=== PATIENT | female | born 1950 | race Caucasian/White ===

== ENCOUNTER → 2016-07-09 | Outpatient (REF) | payer MEDICARE, MEDICAID ==
[~2016-07-09] MED LIST: /ADVA50050; /ALEN70TA; /TIOT18INH; CALC600T10; COLA50CA; COMBVENT; FERR325T; LEVA500T
[2016-07-09 11:37] LABS: ALBUMIN 4.1 GM/DL (3.2-5.2); ALBUMIN/GLOBULIN RATIO 1.46 (1.00-1.93); BILIRUBIN,TOTAL 0.5 MG/DL (0.2-1.0); CALCIUM LEVEL 9.4 MG/DL (8.8-10.2); GLOMERULAR FILTRATION RATE 59.6 (>45); POTASSIUM SERUM 4.4 MEQ/L (3.5-5.1); TOTAL PROTEIN 6.9 GM/DL (6.4-8.2)
== END ==
LOC: M SFHCPLAZ 10:17
PROVIDERS: ATTEND Nurse Practitioner Family
DX: E78.00 Pure hypercholesterolemia, unspecified (principal); E55.9 Vitamin D deficiency, unspecified

== ENCOUNTER → 2017-01-02 | Outpatient (REF) | payer MEDICARE, MEDICAID ==
[2017-01-02 12:13] LABS: ALBUMIN 4.1 GM/DL (3.2-5.2); ALBUMIN/GLOBULIN RATIO 1.52 (1.00-1.93); ALKALINE PHOSPHATASE 83 U/L (45-117); ALT/SGPT 20 U/L (12-78); ANION GAP 7 MEQ/L (8-16); AST/SGOT 16 U/L (7-37); BILIRUBIN,TOTAL 0.5 MG/DL (0.2-1.0); BLOOD UREA NITROGEN 14 MG/DL (7-18); CALCIUM LEVEL 9.4 MG/DL (8.8-10.2); CARBON DIOXIDE LEVEL 30 MEQ/L (21-32); CHLORIDE LEVEL 106 MEQ/L (98-107); CHOLESTEROL LEVEL 229 MG/DL (<200); CREATININE FOR GFR 0.93 MG/DL (0.55-1.02); GLOMERULAR FILTRATION RATE > 60.0 (>45); GLUCOSE, FASTING 85 MG/DL (80-110); POTASSIUM SERUM 4.3 MEQ/L (3.5-5.1); SODIUM LEVEL 143 MEQ/L (136-145); TOTAL PROTEIN 6.8 GM/DL (6.4-8.2); TRIGLYCERIDES LEVEL 97 MG/DL (<150)
== END ==
LOC: M SFHCPLAZ 09:57
PROVIDERS: ATTEND Nurse Practitioner Family
DX: E78.00 Pure hypercholesterolemia, unspecified (principal); E55.9 Vitamin D deficiency, unspecified

== ENCOUNTER → 2017-07-03 | Outpatient (REF) | payer MEDICARE, MEDICAID ==
[2017-07-03 12:06] LABS: ALBUMIN 3.9 GM/DL (3.2-5.2); ALKALINE PHOSPHATASE 82 U/L (45-117); ALT/SGPT 15 U/L (12-78); ANION GAP 6 MEQ/L (8-16); AST/SGOT 15 U/L (7-37); BILIRUBIN,TOTAL 0.4 MG/DL (0.2-1.0); BLOOD UREA NITROGEN 23 MG/DL (7-18); CALCIUM LEVEL 9.1 MG/DL (8.8-10.2); CARBON DIOXIDE LEVEL 30 MEQ/L (21-32); CHLORIDE LEVEL 106 MEQ/L (98-107); CREATININE FOR GFR 1.08 MG/DL (0.55-1.30); GLOMERULAR FILTRATION RATE 54.4 (>45); GLUCOSE, FASTING 94 MG/DL (70-100); POTASSIUM SERUM 4.2 MEQ/L (3.5-5.1); SODIUM LEVEL 142 MEQ/L (136-145); TOTAL PROTEIN 6.9 GM/DL (6.4-8.2)
[2017-07-03 12:12] LABS: TOTAL 25(OH) VITAMIN D 25.3 NG/ML (30.0-100.0)
== END ==
LOC: M SFHCPLAZ 09:16
DX: M81.0 Age-related osteoporosis without current pathological fracture (principal); E55.9 Vitamin D deficiency, unspecified
CPT/HCPCS: 80053

== ENCOUNTER → 2017-10-13 | Outpatient (CLI) | payer MEDICARE, MEDICAID | LOC: M SMT 13:39 | DX: J44.9 Chronic obstructive pulmonary disease, unspecified (principal) | CPT/HCPCS: 71046 ==

== ENCOUNTER → 2018-01-05 | Outpatient (REF) | payer MEDICARE, MEDICAID ==
[2018-01-05 12:50] LABS: ALBUMIN/GLOBULIN RATIO 1.33 (1.00-1.93); ALKALINE PHOSPHATASE 89 U/L (45-117); ALT/SGPT 22 U/L (12-78); ANION GAP 6 MEQ/L (8-16); AST/SGOT 18 U/L (7-37); BILIRUBIN,TOTAL 0.4 MG/DL (0.2-1.0); BLOOD UREA NITROGEN 19 MG/DL (7-18); CALCIUM LEVEL 9.2 MG/DL (8.8-10.2); CARBON DIOXIDE LEVEL 31 MEQ/L (21-32); CHLORIDE LEVEL 105 MEQ/L (98-107); CHOLESTEROL LEVEL 243 MG/DL (<200); CHOLESTEROL RISK RATIO 3.983 (<5); CREATININE FOR GFR 1.04 MG/DL (0.55-1.30); GLOMERULAR FILTRATION RATE 56.6 (>45); GLUCOSE, FASTING 83 MG/DL (70-100); HDL CHOLESTEROL 61 MG/DL (>40); LDL CHOLESTEROL 150 MG/DL (<100); NON-HDL-C 182 MG/DL; POTASSIUM SERUM 4.5 MEQ/L (3.5-5.1); SODIUM LEVEL 142 MEQ/L (136-145); TRIGLYCERIDES LEVEL 160 MG/DL (<150)
[2018-01-05 12:57] LABS: TOTAL 25(OH) VITAMIN D 23.9 NG/ML (30.0-100.0)
== END ==
LOC: M SFHCPLAZ 08:32
DX: E78.00 Pure hypercholesterolemia, unspecified (principal); E55.9 Vitamin D deficiency, unspecified; Z79.899 Other long term (current) drug therapy
CPT/HCPCS: 80053

== ENCOUNTER → 2018-05-14 | Outpatient (CLI) | payer MEDICARE, MEDICAID ==
[~2018-05-14] MED LIST changes: -/ADVA50050; -/TIOT18INH; +ADVA1AER2; +SPIR1CAP
--- NOTE | 2018-05-14 15:49 | REPMRS ---
Patient History The patient states she had a clinical breast exam in 04/2018. Family history of breast cancer in maternal half sister. Benign excisional biopsy of the right breast, 2000. Took unspecified hormones for 6 months. 3D TOMOSYNTHESIS WAS PERFORMED. Digital Woman Screen Mammo: May 14, 2018 - Exam #: [id number] Bilateral CC and MLO view(s) were taken. Technologist: Imelda Hernandez Technologist Prior study comparison: December 15, 2016, digital woman screen mammo performed at [facility] [place] [facility]. October 09, 2015, digital woman screen mammo performed at [facility] [place] [facility]. FINDINGS: There are scattered fibroglandular densities. There has been no change in the appearance of the mammogram from the prior studies. There is a mild amount of residual fibroglandular tissue which is fairly symmetric. There is no interval development of dominant mass, architectural distortion, or clustered microcalcification suggestive of malignancy. Assessment: BI-RADS/ACR category 1 mammogram. Negative Mammogram. Recommendation Routine screening mammogram in 1 year (for women over age 40). This mammogram was interpreted with the aid of an FDA-approved computer-aided dectection system. Electronically Signed By: Teto Haq MD 05/14/18 [id number]
== END ==
LOC: M WHC 15:05
PROVIDERS: ATTEND Nurse Practitioner Family
DX: Z12.31 Encounter for screening mammogram for malignant neoplasm of breast (principal); Z86.018 Personal history of other benign neoplasm; Z92.29 Personal history of other drug therapy; Z23 Encounter for immunization; Z80.3 Family history of malignant neoplasm of breast
CPT/HCPCS: 77063; 77067; 90670; G0009; G0463

== ENCOUNTER 2018-09-27 17:00 | Emergency (ER) | payer OTHER, MEDICARE, MEDICAID ==
[~2018-09-27] VITALS: Ht 144.8 cm; Wt 46.4 kg
[2018-09-27] MEDS ORDERED: NORCO, ANEXSIA 5/325MG TABLET (HYDROcodone/ACETAMINOPHEN) PO ONE (17:45)
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
[2018-09-27] MEDS ORDERED: SOMA250T PO (19:23)
[2018-09-27 19:25] VITALS: BP 182/102
--- NOTE | 2018-09-27 21:45 | ED PDOC ---
Post-Departure Follow-Up heidi cervantes faxed fomral report of ct chest for fu alixg Dariela Osuna MD Sep 27, 2018 21:45
== END 2018-09-27 20:09 | disposition home or self-care (01) ==
LOC: EDBD 17:00 → M ED 17:00
DX: S13.4XXA Sprain of ligaments of cervical spine, initial encounter (principal); S39.012A Strain of muscle, fascia and tendon of lower back, initial encounter; T14.8XXA Other injury of unspecified body region, initial encounter; R91.1 Solitary pulmonary nodule; V43.52XA Car driver injured in collision with other type car in traffic accident, initial encounter; Y92.9 Unspecified place or not applicable; Y93.9 Activity, unspecified; Y99.9 Unspecified external cause status; M85.88 Other specified disorders of bone density and structure, other site; J92.9 Pleural plaque without asbestos; J43.9 Emphysema, unspecified; Z79.899 Other long term (current) drug therapy; Z91.012 Allergy to eggs; Z91.018 Allergy to other foods; Z88.0 Allergy status to penicillin; Z88.2 Allergy status to sulfonamides; Z88.8 Allergy status to other drugs, medicaments and biological substances

== ENCOUNTER 2018-10-03 00:35 | Emergency (ER) | payer MEDICARE, MEDICAID ==
[~2018-10-03] VITALS: Ht 144.8 cm; Wt 46.4 kg
[~2018-10-03 00:35] MED LIST changes: +SOMA250T PO
[2018-10-03 01:05] LABS: BASO # 0.1 10^3/uL (0.0-0.2); BASO % 1.1 % (0.0-1.0); EOS # 0.2 10^3/uL (0.0-0.50); EOS % 1.8 % (0.0-3.0); LYMPH # 2.2 10^3/uL (1.5-4.5); LYMPH % 21.6 % (24.0-44.0); MEAN CORPUSCULAR HEMOGLOBIN 30.3 pg (27.0-33.0); MEAN CORPUSCULAR HGB CONC 31.9 g/dl (32.0-36.5); MEAN CORPUSCULAR VOLUME 94.9 fl (80.0-96.0); MONO # 0.7 10^3/uL (0.0-0.8); MONO % 6.6 % (0.0-5.0); NEUTROPHILS % 68.1 % (36.0-66.0); PLATELET COUNT, AUTOMATED 259 10^3/uL (150-450); RED BLOOD COUNT 4.95 10^6/uL (4.00-5.40); WHITE BLOOD COUNT 10.2 10^3/uL (4.0-10.0)
[2018-10-03 01:29] LABS: BLOOD UREA NITROGEN 21 MG/DL (7-18); CALCIUM LEVEL 10.3 MG/DL (8.8-10.2); CARBON DIOXIDE LEVEL 29 MEQ/L (21-32); CHLORIDE LEVEL 101 MEQ/L (98-107); CPK CREATINE PHOSPHOKINASE 64 U/L (26-192); CREATININE FOR GFR 1.41 MG/DL (0.55-1.30); GLOMERULAR FILTRATION RATE 39.7 (>45); GLUCOSE, FASTING 137 MG/DL (70-100); MB/CK RELATIVE INDEX 1.56 (< OR =4); POTASSIUM SERUM 4.7 MEQ/L (3.5-5.1); SODIUM LEVEL 137 MEQ/L (136-145); TROPONIN I < 0.02 NG/ML (< 0.10)
[2018-10-03 01:32] VITALS: BP 147/84
[2018-10-03] MEDS ORDERED: LORazepam 1 MG TAB PO STA (02:44)
[2018-10-03] MEDS ORDERED: dexameTHASONE 20 MG/5 ML VIAL (J1100) IV ONE (02:45)
--- NOTE | 2018-10-03 09:52 | REP ---
HISTORY: Chest pain. COMPARISON: Multiple, the latest 10/13/2017. The technique utilized in obtaining the radiograph has magnified the cardiac silhouette and accentuated the interstitial markings. There is mild interstitial fibrotic change with basilar predominance, status quo. There are no acute patchy parenchymal opacities or pleural effusions. The heart is not enlarged. The osseous structures are stable and intact. IMPRESSION: No acute cardiopulmonary disease and no significant change from the prior exam. Electronically Signed by Jhonny Whaley DO 10/03/2018 10:06 A
--- NOTE | 2018-10-03 21:34 | ECGEPIP ---
[facility] - ED Test Date: 2018-10-03 Pat Name: EVENA LOZANO Department: Room: - Gender: Female Account General Manager: : 1950 Requested By: RACHELLE ALAMO Order Number: [id number] Reading MD: Charis García Measurements Intervals [place] Rate: 109 P: 69 KS: 100 QRS: -36 QRSD: 89 T: 69 QT: 314 QTc: 423 Interpretive Statements SINUS TACHYCARDIA WITH SHORT [place] INTERVAL baseline artifact may affect interpretation MARKED LEFT AXIS DEVIATION NONSPECIFIC ST & T-WAVE ABNORMALITY NO PRIOR Electronically Signed on 10-03-2018 21:34:14 EDT by Charis García
== END 2018-10-03 03:04 | disposition home or self-care (01) ==
LOC: M ED 00:35
DX: J44.9 Chronic obstructive pulmonary disease, unspecified (principal); R00.0 Tachycardia, unspecified; F41.1 Generalized anxiety disorder; Z79.51 Long term (current) use of inhaled steroids; Z79.899 Other long term (current) drug therapy; Z87.891 Personal history of nicotine dependence; Z88.0 Allergy status to penicillin; Z88.2 Allergy status to sulfonamides; Z88.6 Allergy status to analgesic agent; Z88.8 Allergy status to other drugs, medicaments and biological substances; Z91.012 Allergy to eggs; Z91.018 Allergy to other foods
CPT/HCPCS: 71045; 80048; 82550; 82553; 83605; 84484; 85025; 93005; 96374; 99284; J1100

== ENCOUNTER 2018-10-21 13:45 | Outpatient (RCR) | payer OTHER, MEDICARE, MEDICAID | END 2018-10-23 | LOC: M PT 13:45 | PROVIDERS: ATTEND Nurse Practitioner Family | DX: S39.012D Strain of muscle, fascia and tendon of lower back, subsequent encounter (principal); S16.1XXD Strain of muscle, fascia and tendon at neck level, subsequent encounter ==

== ENCOUNTER 2018-11-10 13:00 | Outpatient (RCR) | payer OTHER, MEDICARE, MEDICAID | END 2018-11-22 | LOC: M PT 13:00 | PROVIDERS: ATTEND Nurse Practitioner Family | DX: Z51.89 Encounter for other specified aftercare (principal); S39.012D Strain of muscle, fascia and tendon of lower back, subsequent encounter; S16.1XXD Strain of muscle, fascia and tendon at neck level, subsequent encounter ==

== ENCOUNTER → 2018-11-15 | Outpatient (REF) | payer MEDICARE, MEDICAID ==
[2018-11-15 13:27] LABS: ALT/SGPT 14 U/L (12-78); BILIRUBIN,TOTAL 0.3 MG/DL (0.2-1.0); BLOOD UREA NITROGEN 15 MG/DL (7-18); CALCIUM LEVEL 9.2 MG/DL (8.8-10.2); CARBON DIOXIDE LEVEL 30 MEQ/L (21-32); CHLORIDE LEVEL 104 MEQ/L (98-107); CHOLESTEROL LEVEL 215 MG/DL (<200); CHOLESTEROL RISK RATIO 3.412 (<5); CREATININE FOR GFR 0.95 MG/DL (0.55-1.30); GLOMERULAR FILTRATION RATE > 60.0 (>45); GLUCOSE, FASTING 86 MG/DL (70-100); HDL CHOLESTEROL 63 MG/DL (>40); LDL CHOLESTEROL 131 MG/DL (<100); NON-HDL-C 152 MG/DL; POTASSIUM SERUM 4.5 MEQ/L (3.5-5.1); SODIUM LEVEL 142 MEQ/L (136-145); TOTAL 25(OH) VITAMIN D 27.7 NG/ML (30.0-100.0); TOTAL PROTEIN 7.2 GM/DL (6.4-8.2); TRIGLYCERIDES LEVEL 103 MG/DL (<150)
== END ==
LOC: M SFHCPLAZ 10:22
PROVIDERS: ATTEND Nurse Practitioner Family
DX: E78.00 Pure hypercholesterolemia, unspecified (principal); E55.9 Vitamin D deficiency, unspecified; Z79.899 Other long term (current) drug therapy

== ENCOUNTER → 2019-09-22 | Outpatient (CLI) | payer MEDICARE, MEDICAID ==
--- NOTE | 2019-10-16 11:02 | REPMRS ---
Patient History The patient states she had a clinical breast exam in September 2019.Family history of breast cancer in maternal half sister. Benign excisional biopsy of the right breast, 2000. Took unspecified hormones for 6 months. Digital Woman Screen Mammo: September 22, 2019 - Exam #: [id number] Bilateral CC and MLO view(s) were taken. Technologist: Soila Ceja, Technologist Prior study comparison: May 14, 2018, bilateral digital woman screen mammo performed at [facility]. December 15, 2016, digital woman screen mammo performed at [facility]. FINDINGS: There are scattered fibroglandular densities. There has been no change in the appearance of the mammogram from the prior studies. There is a mild amount of scattered fibroglandular density which is fairly symmetric. There is no interval development of dominant mass, architectural distortion, or grouped microcalcification suggestive of malignancy. 3-D tomosynthesis shows no additional findings. Report was delayed due to a protracted network disruption experienced by this facility. Assessment: BI-RADS/ACR category 1 mammogram. Negative Mammogram. Recommendation Routine screening mammogram of both breasts in 1 year (for women over age 40). This patient's Lifetime Breast Cancer Risk is estimated at 6.1 %. This mammogram was interpreted with the aid of an FDA-approved computer-aided dectection system. Electronically Signed By: Eben Driver MD 10/16/19 [id number]
== END ==
LOC: M WHC 13:18
PROVIDERS: ATTEND Nurse Practitioner Family
DX: Z12.31 Encounter for screening mammogram for malignant neoplasm of breast (principal); Z80.3 Family history of malignant neoplasm of breast; Z86.018 Personal history of other benign neoplasm; Z92.29 Personal history of other drug therapy

== ENCOUNTER → 2019-11-28 | Outpatient (REF) | payer MEDICARE, MEDICAID ==
[2019-11-28 14:20] LABS: ALT/SGPT 15 U/L (12-78); BILIRUBIN,TOTAL 0.3 MG/DL (0.2-1.0); BLOOD UREA NITROGEN 18 MG/DL (7-18); CALCIUM LEVEL 9.5 MG/DL (8.8-10.2); CARBON DIOXIDE LEVEL 29 MEQ/L (21-32); CHLORIDE LEVEL 106 MEQ/L (98-107); CHOLESTEROL LEVEL 271 MG/DL (<200); CHOLESTEROL RISK RATIO 4.593 (<5); CREATININE FOR GFR 0.91 MG/DL (0.55-1.30); GLOMERULAR FILTRATION RATE > 60.0 (>45); GLUCOSE, FASTING 85 MG/DL (70-100); HDL CHOLESTEROL 59 MG/DL (>40); LDL CHOLESTEROL 179 MG/DL (<100); NON-HDL-C 212 MG/DL; SODIUM LEVEL 140 MEQ/L (136-145); TOTAL 25(OH) VITAMIN D 26.5 NG/ML (30.0-100.0); TRIGLYCERIDES LEVEL 163 MG/DL (<150)
== END ==
LOC: M PLALAB 10:46
PROVIDERS: ATTEND Nurse Practitioner Family
DX: E78.00 Pure hypercholesterolemia, unspecified (principal); E55.9 Vitamin D deficiency, unspecified

== ENCOUNTER → 2020-05-30 | Outpatient (REF) | payer MEDICARE, MEDICAID ==
[2020-05-30 16:28] LABS: ALBUMIN 4.2 GM/DL (3.2-5.2); ALT/SGPT 18 U/L (12-78); BILIRUBIN,TOTAL 0.4 MG/DL (0.2-1.0); BLOOD UREA NITROGEN 18 MG/DL (7-18); CALCIUM LEVEL 9.4 MG/DL (8.8-10.2); CARBON DIOXIDE LEVEL 32 MEQ/L (21-32); CHLORIDE LEVEL 104 MEQ/L (98-107); CHOLESTEROL LEVEL 279 MG/DL (<200); CHOLESTEROL RISK RATIO 4.102 (<5); CREATININE FOR GFR 0.92 MG/DL (0.55-1.30); GLOMERULAR FILTRATION RATE > 60.0 (>45); GLUCOSE, FASTING 86 MG/DL (70-100); HDL CHOLESTEROL 68 MG/DL (>40); LDL CHOLESTEROL 172 MG/DL (<100); NON-HDL-C 211 MG/DL; POTASSIUM SERUM 4.5 MEQ/L (3.5-5.1); SODIUM LEVEL 139 MEQ/L (136-145); TOTAL 25(OH) VITAMIN D 75.7 NG/ML (30.0-100.0); TOTAL PROTEIN 7.3 GM/DL (6.4-8.2); TRIGLYCERIDES LEVEL 196 MG/DL (<150)
== END ==
LOC: M PLALAB 13:58
PROVIDERS: ATTEND Nurse Practitioner Family
DX: E78.00 Pure hypercholesterolemia, unspecified (principal); E55.9 Vitamin D deficiency, unspecified

== ENCOUNTER → 2020-10-01 | Outpatient (CLI) | payer MEDICARE ==
[~2020-10-01] MED LIST changes: +ACET500P3 PO; +ADV250INH INH; +ALBU8.5H INH; +CALC-356 PO; +ERGO500029 PO; +FLUTISP; +INCR1INH INH; +TRIA1CR80 TOP
== END ==
LOC: M WHC 11:23
PROVIDERS: ATTEND Nurse Practitioner Family
DX: Z12.31 Encounter for screening mammogram for malignant neoplasm of breast (principal)

== ENCOUNTER → 2021-01-19 | Outpatient (CLI) | payer MEDICARE, MEDICAID | LOC: M LABSMTC 11:10 | PROVIDERS: ATTEND Anesthesiology | DX: Z01.818 Encounter for other preprocedural examination (principal); Z11.52 Encounter for screening for COVID-19 ==

== ENCOUNTER 2021-01-22 09:34 | Day surgery (SDC) | payer MEDICARE, MEDICAID ==
[~2021-01-22] VITALS: Ht 147.3 cm; Wt 44.2 kg
[~2021-01-22 09:34] MED LIST changes: +LIDOCAINE 2% 100MG/5ML SDV (FOR ANES.) As Ordered ONE; +NS 1,000 ML IV ONE; +propofoL 200 MG/20 ML VIAL As Ordered ONE
[2021-01-22 11:49] VITALS: BP 138/84
== END 2021-01-22 12:10 | disposition home or self-care (01) ==
LOC: M OPP 09:34
PROVIDERS: ATTEND Internal Medicine Gastroenterology
DX: Z12.11 Encounter for screening for malignant neoplasm of colon (principal); Z86.010 Personal history of colon polyps; Z79.899 Other long term (current) drug therapy; Z88.0 Allergy status to penicillin; Z88.2 Allergy status to sulfonamides; Z88.8 Allergy status to other drugs, medicaments and biological substances; Z91.011 Allergy to milk products; Z91.012 Allergy to eggs; Z91.018 Allergy to other foods; Z91.040 Latex allergy status; Z87.891 Personal history of nicotine dependence

== ENCOUNTER → 2021-05-13 | Outpatient (CLI) | payer MEDICARE, MEDICAID ==
[~2021-05-13] MED LIST changes: -LIDOCAINE 2% 100MG/5ML SDV (FOR ANES.) As Ordered ONE; -NS 1,000 ML IV ONE; -propofoL 200 MG/20 ML VIAL As Ordered ONE
[2021-05-13 17:07] LABS: BASO # 0.1 10^3/uL (0.0-0.2); BASO % 1.2 % (0.0-1.0); EOS # 0.2 10^3/uL (0.0-0.5); EOS % 2.4 % (0.0-3.0); HEMATOCRIT 44.3 % (36.0-47.0); LYMPH # 1.7 10^3/uL (1.5-5.0); LYMPH % 25.2 % (24.0-44.0); MEAN CORPUSCULAR HEMOGLOBIN 29.7 pg (27.0-33.0); MEAN CORPUSCULAR HGB CONC 31.6 g/dl (32.0-36.5); MEAN CORPUSCULAR VOLUME 93.9 fl (80.0-96.0); MONO # 0.6 10^3/uL (0.0-0.8); MONO % 9.2 % (2.0-8.0); NEUTROPHILS # 4.1 10^3/uL (1.5-8.5); NEUTROPHILS % 61.5 % (36.0-66.0); PLATELET COUNT, AUTOMATED 278 10^3/uL (150-450); RED BLOOD COUNT 4.72 10^6/uL (4.00-5.40); WHITE BLOOD COUNT 6.6 10^3/uL (4.0-10.0)
[2021-05-13 17:32] LABS: CREATININE FOR GFR 0.99 MG/DL (0.55-1.30)
[2021-05-13 17:33] LABS: ALBUMIN 4.3 GM/DL (3.2-5.2); BILIRUBIN,TOTAL 0.3 MG/DL (0.2-1.0); CALCIUM LEVEL 9.5 MG/DL (8.8-10.2); CHOLESTEROL RISK RATIO 3.453 (<5); GLOMERULAR FILTRATION RATE 59.4 (>45); POTASSIUM SERUM 4.3 MEQ/L (3.5-5.1); TOTAL PROTEIN 7.4 GM/DL (6.4-8.2)
[2021-05-13 17:35] LABS: TOTAL 25(OH) VITAMIN D 21.1 NG/ML (30.0-100.0)
== END ==
LOC: M PLALAB 14:49
PROVIDERS: ATTEND Nurse Practitioner Family
DX: J43.9 Emphysema, unspecified (principal); E78.00 Pure hypercholesterolemia, unspecified; E55.9 Vitamin D deficiency, unspecified

== ENCOUNTER 2021-07-23 17:41 | Inpatient (IN) | payer MEDICARE, MEDICAID ==
[~2021-07-23] VITALS: Ht 147.3 cm; Wt 50.6 kg
[2021-07-23 18:25] LABS: BASO # 0.1 10^3/uL (0.0-0.2); BASO % 0.6 % (0.0-1.0); EOS # 0.1 10^3/uL (0.0-0.5); EOS % 0.6 % (0.0-3.0); HEMOGLOBIN 13.8 g/dl (12.0-15.5); LYMPH # 1.4 10^3/uL (1.5-5.0); LYMPH % 11.3 % (24.0-44.0); MEAN CORPUSCULAR HEMOGLOBIN 30.2 pg (27.0-33.0); MEAN CORPUSCULAR HGB CONC 32.1 g/dl (32.0-36.5); MEAN CORPUSCULAR VOLUME 94.1 fl (80.0-96.0); MONO # 1.2 10^3/uL (0.0-0.8); MONO % 9.9 % (2.0-8.0); NEUTROPHILS # 9.6 10^3/uL (1.5-8.5); NEUTROPHILS % 77.1 % (36.0-66.0); PLATELET COUNT, AUTOMATED 289 10^3/uL (150-450); RED BLOOD COUNT 4.57 10^6/uL (4.00-5.40); WHITE BLOOD COUNT 12.5 10^3/uL (4.0-10.0)
[2021-07-23] MEDS ORDERED: dexameTHASONE 4 MG/ML 1ML VIAL (J1100 PER 1MG) IV ONE (18:30)
[2021-07-23 18:54] LABS: CK-MB VALUE MASS < 1.0 NG/ML (<3.6); CPK CREATINE PHOSPHOKINASE 79 U/L (26-192); MB/CK RELATIVE INDEX 1.27 (< OR =4)
[2021-07-23 18:59] LABS: ALBUMIN 3.8 GM/DL (3.2-5.2); BILIRUBIN,DIRECT 0.2 MG/DL (0.0-0.2); BILIRUBIN,TOTAL 0.3 MG/DL (0.2-1.0); CALCIUM LEVEL 9.8 MG/DL (8.8-10.2); CREATININE FOR GFR 1.01 MG/DL (0.55-1.30); FREE T4 0.9 NG/DL (0.76-1.46); THYROID STIMULATING HORMONE 2.22 uIU/ML (0.358-3.740); TOTAL PROTEIN 7.7 GM/DL (6.4-8.2)
[2021-07-23] MEDS: COMBIVENT RESPIMAT 100-20MCG INHALER 4GM INH SCH ×3 (19:10→20:36)
[2021-07-23] MEDS ORDERED: ISOVUE-370 76% 100ML VIAL As Ordered ONE (19:41)
[2021-07-23 19:54] LABS: CK-MB VALUE MASS < 1.0 NG/ML (<3.6); CPK CREATINE PHOSPHOKINASE 68 U/L (26-192); MB/CK RELATIVE INDEX 1.47 (< OR =4)
[2021-07-23] MEDS ORDERED: LevoFLOXacin IV 750 MG in IV 1 EA IV ONE (22:35)
[2021-07-23] MEDS ORDERED: COMBIVENT RESPIMAT 100-20MCG INHALER 4GM INH ONE (22:55)
[2021-07-23] MEDS ORDERED: ALBUTEROL SULFATE 2.5 MG/0.5 ML INH NEB SOLN INH PRN (23:20)
[2021-07-23] MEDS ORDERED: ALBUTEROL 90 MCG/ACT 8GM HFA INHALER INH PRN (23:20)
[2021-07-23] MEDS ORDERED: IPRATROPIUM 0.5MG/ALBUTEROL 2.5MG INH SOL UD 3ML (DUONEB) INH PRN (23:20)
[2021-07-24] VITALS (8 sets, daily range): BP systolic 150–180; BP diastolic 60–77; O2SAT 94–95
[2021-07-24] MEDS ORDERED: ACET-897 PO (02:07)
[2021-07-24] MEDS ORDERED: AUGM0.05 EXT (02:07)
[2021-07-24] MEDS ORDERED: LEVOTAB10 PO (02:07)
[2021-07-24] MEDS ORDERED: CALC600T27 PO (02:07)
[2021-07-24] MEDS ORDERED: ALBU8.5H INH (02:07)
[2021-07-24] MEDS ORDERED: HOME MED LIST COMPLETE! XX SCH (02:10)
[2021-07-24 05:44] LABS: BASO % 0.3 % (0.0-1.0); HEMATOCRIT 38.6 % (36.0-47.0); HEMOGLOBIN 12.6 g/dl (12.0-15.5); LYMPH # 0.7 10^3/uL (1.5-5.0); LYMPH % 6.6 % (24.0-44.0); MEAN CORPUSCULAR HEMOGLOBIN 30.7 pg (27.0-33.0); MEAN CORPUSCULAR HGB CONC 32.6 g/dl (32.0-36.5); MEAN CORPUSCULAR VOLUME 94.1 fl (80.0-96.0); MONO # 0.4 10^3/uL (0.0-0.8); NEUTROPHILS % 88.4 % (36.0-66.0); PLATELET COUNT, AUTOMATED 275 10^3/uL (150-450); WHITE BLOOD COUNT 10.2 10^3/uL (4.0-10.0)
[2021-07-24 06:16] LABS: ALBUMIN 3.5 GM/DL (3.2-5.2); ALT/SGPT 26 U/L (12-78); BILIRUBIN,TOTAL 0.4 MG/DL (0.2-1.0); BLOOD UREA NITROGEN 11 MG/DL (7-18); CALCIUM LEVEL 9.1 MG/DL (8.8-10.2); CARBON DIOXIDE LEVEL 26 MEQ/L (21-32); CHLORIDE LEVEL 105 MEQ/L (98-107); CREATININE FOR GFR 0.94 MG/DL (0.55-1.30); GLOMERULAR FILTRATION RATE > 60.0 (>45); GLUCOSE, FASTING 160 MG/DL (70-100); POTASSIUM SERUM 4.6 MEQ/L (3.5-5.1); SODIUM LEVEL 139 MEQ/L (136-145); TOTAL PROTEIN 7.1 GM/DL (6.4-8.2)
[2021-07-24] MEDS: ADVAIR HFA 115/21MCG INHALER INH SCH (08:11)
[2021-07-24] MEDS: ENOXAPARIN 40MG/0.4ML SYRINGE (J1650 PER 10MG) SC SCH (09:29)
[2021-07-24] MEDS: CALCIUM/VITAMIN D 500 MG TAB PO SCH ×2 (09:29→20:52)
[2021-07-24] MEDS: ACETAMINOPHEN 500 MG TAB PO PRN (20:58)
[2021-07-25] VITALS (22 sets, daily range): BP systolic 124–170; BP diastolic 67–80; O2SAT 85–99
[2021-07-25 05:10] LABS: BASO # 0.1 10^3/uL (0.0-0.2); BASO % 0.6 % (0.0-1.0); EOS # 0.1 10^3/uL (0.0-0.5); HEMOGLOBIN 12.7 g/dl (12.0-15.5); LYMPH # 2.4 10^3/uL (1.5-5.0); LYMPH % 17.7 % (24.0-44.0); MEAN CORPUSCULAR HEMOGLOBIN 30.7 pg (27.0-33.0); MEAN CORPUSCULAR HGB CONC 32.6 g/dl (32.0-36.5); MEAN CORPUSCULAR VOLUME 94.2 fl (80.0-96.0); MONO # 1.3 10^3/uL (0.0-0.8); MONO % 9.3 % (2.0-8.0); NEUTROPHILS # 9.4 10^3/uL (1.5-8.5); NEUTROPHILS % 70.7 % (36.0-66.0); PLATELET COUNT, AUTOMATED 280 10^3/uL (150-450); RED BLOOD COUNT 4.14 10^6/uL (4.00-5.40); WHITE BLOOD COUNT 13.4 10^3/uL (4.0-10.0)
[2021-07-25 05:40] LABS: ALBUMIN 3.1 GM/DL (3.2-5.2); ALT/SGPT 18 U/L (12-78); BILIRUBIN,TOTAL 0.3 MG/DL (0.2-1.0); BLOOD UREA NITROGEN 15 MG/DL (7-18); CALCIUM LEVEL 9.3 MG/DL (8.8-10.2); CARBON DIOXIDE LEVEL 29 MEQ/L (21-32); CHLORIDE LEVEL 107 MEQ/L (98-107); GLOMERULAR FILTRATION RATE > 60.0 (>45); GLUCOSE, FASTING 103 MG/DL (70-100); SODIUM LEVEL 140 MEQ/L (136-145); TOTAL PROTEIN 7.2 GM/DL (6.4-8.2)
[2021-07-25] MEDS: ACETAMINOPHEN 500 MG TAB PO PRN ×3 (06:35→23:13)
[2021-07-25] MEDS: ADVAIR HFA 115/21MCG INHALER INH SCH (07:53)
[2021-07-25] MEDS: CALCIUM/VITAMIN D 500 MG TAB PO SCH ×2 (08:34→21:19)
[2021-07-25] MEDS: ENOXAPARIN 40MG/0.4ML SYRINGE (J1650 PER 10MG) SC SCH (08:35)
[2021-07-25] MEDS: LIDOCAINE 5% (LIDODERM) PATCH TD SCH (15:31)
[2021-07-25 16:08] LABS: MYCOPLASMA PNEUMONIAE IgG 285 U/mL (0-99); MYCOPLASMA PNEUMONIAE IgM <770 U/mL (0-769)
[2021-07-25] MEDS: **NOTE PATIENT COMMENT** MISC XX SCH (21:00)
[2021-07-25] MEDS ORDERED: RAMELTEON 8 MG TAB (ROZEREM) PO PRN (23:55)
[2021-07-26] VITALS (9 sets, daily range): BP systolic 126–147; BP diastolic 68–83; O2SAT 95–96
[2021-07-26] MEDS ORDERED: LevoFLOXacin IV 750 MG in IV 1 EA IV SCH ×2
[2021-07-26] MEDS ORDERED: guaiFENesin SYRUP 200MG 10ML UDC PO PRN (04:35)
[2021-07-26 07:38] LABS: BASO # 0.1 10^3/uL (0.0-0.2); BASO % 0.9 % (0.0-1.0); EOS # 0.3 10^3/uL (0.0-0.5); HEMATOCRIT 38.5 % (36.0-47.0); HEMOGLOBIN 12.2 g/dl (12.0-15.5); LYMPH # 1.8 10^3/uL (1.5-5.0); LYMPH % 17.6 % (24.0-44.0); MEAN CORPUSCULAR HGB CONC 31.7 g/dl (32.0-36.5); MEAN CORPUSCULAR VOLUME 94.6 fl (80.0-96.0); MONO % 10.4 % (2.0-8.0); NEUTROPHILS # 6.7 10^3/uL (1.5-8.5); NEUTROPHILS % 66.5 % (36.0-66.0); PLATELET COUNT, AUTOMATED 268 10^3/uL (150-450); RED BLOOD COUNT 4.07 10^6/uL (4.00-5.40)
[2021-07-26 07:46] LABS: ALT/SGPT 23 U/L (12-78); BILIRUBIN,TOTAL 0.3 MG/DL (0.2-1.0); BLOOD UREA NITROGEN 16 MG/DL (7-18); CALCIUM LEVEL 9.5 MG/DL (8.8-10.2); CARBON DIOXIDE LEVEL 29 MEQ/L (21-32); CHLORIDE LEVEL 106 MEQ/L (98-107); CREATININE FOR GFR 0.83 MG/DL (0.55-1.30); GLOMERULAR FILTRATION RATE > 60.0 (>45); GLUCOSE, FASTING 97 MG/DL (70-100); POTASSIUM SERUM 4.3 MEQ/L (3.5-5.1); SODIUM LEVEL 142 MEQ/L (136-145); TOTAL PROTEIN 6.4 GM/DL (6.4-8.2)
[2021-07-26] MEDS: ADVAIR HFA 115/21MCG INHALER INH SCH (07:56)
[2021-07-26] MEDS: CALCIUM/VITAMIN D 500 MG TAB PO SCH ×2 (10:41→22:07)
[2021-07-26] MEDS: ACETAMINOPHEN 500 MG TAB PO PRN ×2 (10:41→22:20)
[2021-07-26] MEDS: ENOXAPARIN 40MG/0.4ML SYRINGE (J1650 PER 10MG) SC SCH (10:41)
[2021-07-26] MEDS: LIDOCAINE 5% (LIDODERM) PATCH TD SCH (10:41)
[2021-07-26] MEDS: **NOTE PATIENT COMMENT** MISC XX SCH (22:20)
[2021-07-27 02:00] VITALS: BP 127/77
[2021-07-27 06:00] VITALS: BP 127/76
[2021-07-27] MEDS ORDERED: LevoFLOXacin 750 MG TABLET PO SCH (06:00)
[2021-07-27 07:36] LABS: BASO # 0.1 10^3/uL (0.0-0.2); BASO % 1.6 % (0.0-1.0); EOS # 0.3 10^3/uL (0.0-0.5); EOS % 3.6 % (0.0-3.0); HEMATOCRIT 39.9 % (36.0-47.0); HEMOGLOBIN 12.5 g/dl (12.0-15.5); LYMPH % 24.5 % (24.0-44.0); MEAN CORPUSCULAR HEMOGLOBIN 30.1 pg (27.0-33.0); MEAN CORPUSCULAR HGB CONC 31.3 g/dl (32.0-36.5); MEAN CORPUSCULAR VOLUME 96.1 fl (80.0-96.0); MONO # 0.8 10^3/uL (0.0-0.8); MONO % 9.7 % (2.0-8.0); NEUTROPHILS # 4.7 10^3/uL (1.5-8.5); NEUTROPHILS % 56.4 % (36.0-66.0); PLATELET COUNT, AUTOMATED 293 10^3/uL (150-450); RED BLOOD COUNT 4.15 10^6/uL (4.00-5.40); WHITE BLOOD COUNT 8.3 10^3/uL (4.0-10.0)
[2021-07-27 07:56] LABS: ALT/SGPT 19 U/L (12-78); BILIRUBIN,TOTAL 0.3 MG/DL (0.2-1.0); BLOOD UREA NITROGEN 15 MG/DL (7-18); CALCIUM LEVEL 9.8 MG/DL (8.8-10.2); CARBON DIOXIDE LEVEL 33 MEQ/L (21-32); CHLORIDE LEVEL 107 MEQ/L (98-107); CREATININE FOR GFR 0.84 MG/DL (0.55-1.30); GLOMERULAR FILTRATION RATE > 60.0 (>45); GLUCOSE, FASTING 103 MG/DL (70-100); POTASSIUM SERUM 4.3 MEQ/L (3.5-5.1); SODIUM LEVEL 142 MEQ/L (136-145); TOTAL PROTEIN 7.1 GM/DL (6.4-8.2)
[2021-07-27] MEDS: ADVAIR HFA 115/21MCG INHALER INH SCH (08:16)
[2021-07-27] MEDS: ENOXAPARIN 40MG/0.4ML SYRINGE (J1650 PER 10MG) SC SCH (09:17)
[2021-07-27] MEDS: LIDOCAINE 5% (LIDODERM) PATCH TD SCH (09:17)
[2021-07-27] MEDS: CALCIUM/VITAMIN D 500 MG TAB PO SCH (09:18)
[2021-07-27 10:00] VITALS: BP 155/88
[2021-07-27] MEDS ORDERED: LEVO750T13 PO (11:23)
[2021-07-27 14:00] VITALS: BP 153/85
[2021-07-29 15:09] LABS: CHLAMYDIA PNEUMONIAE IgM <1:10 (Neg:<1:10)
== END 2021-07-27 17:02 | disposition home or self-care (01) | DRG 871 ==
LOC: M ED 17:41 → M ED INP 23:36 → ENRESERV 07-24 11:08 → M PCU 07-24 12:15 → M MSPAV 07-25 22:10
PROVIDERS: ADMIT Family Medicine; ATTEND Family Medicine
DX: A41.9 Sepsis, unspecified organism (principal); J18.9 Pneumonia, unspecified organism; J96.00 Acute respiratory failure, unspecified whether with hypoxia or hypercapnia; J44.0 Chronic obstructive pulmonary disease with (acute) lower respiratory infection; R91.1 Solitary pulmonary nodule; I10 Essential (primary) hypertension; Z87.891 Personal history of nicotine dependence; L30.9 Dermatitis, unspecified; Z79.899 Other long term (current) drug therapy; Z91.041 Radiographic dye allergy status; Z88.2 Allergy status to sulfonamides; Z88.6 Allergy status to analgesic agent; Z91.018 Allergy to other foods; Z91.012 Allergy to eggs; Z88.0 Allergy status to penicillin; G89.29 Other chronic pain

== ENCOUNTER → 2021-09-30 | Outpatient (CLI) | payer MEDICARE, MEDICAID ==
[~2021-09-30] MED LIST changes: +ACET-897 PO; +AUGM0.05 EXT; +CALC600T27 PO; +LEVO1TAB40 PO; +LEVOTAB10 PO
== END ==
LOC: M WHC 14:14
PROVIDERS: ATTEND Nurse Practitioner Family
DX: Z12.31 Encounter for screening mammogram for malignant neoplasm of breast (principal); M81.0 Age-related osteoporosis without current pathological fracture; M16.0 Bilateral primary osteoarthritis of hip; M85.89 Other specified disorders of bone density and structure, multiple sites

== ENCOUNTER → 2021-10-23 | Outpatient (CLI) | payer MEDICARE, MEDICAID | LOC: M RAD 10:36 | PROVIDERS: ATTEND Physician Assistant | DX: R91.8 Other nonspecific abnormal finding of lung field (principal) ==

== ENCOUNTER → 2021-10-23 | Outpatient (CLI) | payer MEDICARE, MEDICAID ==
[2021-10-23 13:30] LABS: BASO # 0.1 10^3/uL (0.0-0.2); BASO % 0.6 % (0.0-1.0); EOS # 0.2 10^3/uL (0.0-0.5); EOS % 1.9 % (0.0-3.0); HEMOGLOBIN 12.8 g/dl (12.0-15.5); LYMPH # 1.4 10^3/uL (1.5-5.0); MEAN CORPUSCULAR HEMOGLOBIN 29.8 pg (27.0-33.0); MONO # 0.8 10^3/uL (0.0-0.8); MONO % 8.7 % (2.0-8.0); NEUTROPHILS # 6.9 10^3/uL (1.5-8.5); NEUTROPHILS % 73.3 % (36.0-66.0); PLATELET COUNT, AUTOMATED 288 10^3/uL (150-450); WHITE BLOOD COUNT 9.4 10^3/uL (4.0-10.0)
[2021-10-23 13:55] LABS: CALCIUM LEVEL 9.6 MG/DL (8.8-10.2); GLOMERULAR FILTRATION RATE 58.5 (>45); POTASSIUM SERUM 4.7 MEQ/L (3.5-5.1)
== END ==
LOC: M PLALAB 11:24
PROVIDERS: ATTEND Nurse Practitioner Family
DX: I10 Essential (primary) hypertension (principal)

== ENCOUNTER → 2022-06-10 | Outpatient (CLI) | payer MEDICARE, MEDICAID ==
[~2022-06-10] MED LIST changes: +FLUT50SP17; -FLUTISP
[2022-06-10 14:13] LABS: BASO # 0.1 10^3/uL (0.0-0.2); BASO % 0.9 % (0.0-1.0); EOS # 0.1 10^3/uL (0.0-0.5); EOS % 1.7 % (0.0-3.0); HEMATOCRIT 44.4 % (36.0-47.0); LYMPH # 1.8 10^3/uL (1.5-5.0); LYMPH % 22.1 % (24.0-44.0); MEAN CORPUSCULAR HEMOGLOBIN 30.2 pg (27.0-33.0); MEAN CORPUSCULAR HGB CONC 31.5 g/dl (32.0-36.5); MEAN CORPUSCULAR VOLUME 95.7 fl (80.0-96.0); MONO # 0.8 10^3/uL (0.0-0.8); MONO % 9.9 % (2.0-8.0); NEUTROPHILS # 5.3 10^3/uL (1.5-8.5); NEUTROPHILS % 64.8 % (36.0-66.0); PLATELET COUNT, AUTOMATED 289 10^3/uL (150-450); RED BLOOD COUNT 4.64 10^6/uL (4.00-5.40); WHITE BLOOD COUNT 8.1 10^3/uL (4.0-10.0)
[2022-06-10 14:40] LABS: ALBUMIN 4.5 G/DL (3.2-5.2); BILIRUBIN,TOTAL 0.5 MG/DL (0.3-1.2); CALCIUM LEVEL 9.4 MG/DL (8.3-10.6); CHOLESTEROL RISK RATIO 3.26 (<5); CREATININE FOR GFR 1.03 MG/DL (0.55-1.30); GLOMERULAR FILTRATION RATE 56.6 (>45); HDL CHOLESTEROL 65.2 MG/DL (>40); LDL CHOLESTEROL 128.2 MG/DL (<100); NON-HDL-C 147.8 MG/DL; POTASSIUM SERUM 4.8 MMOL/L (3.5-5.1); TOTAL PROTEIN 7.3 G/DL (5.7-8.2)
== END ==
LOC: M PLALAB 10:08
PROVIDERS: ATTEND Nurse Practitioner Family
DX: I10 Essential (primary) hypertension (principal)

== ENCOUNTER → 2022-06-10 | Outpatient (REF) | payer MEDICARE, MEDICAID | LOC: M SFHCPLAZ 10:06 | PROVIDERS: ATTEND Nurse Practitioner Family | DX: E55.9 Vitamin D deficiency, unspecified (principal); I10 Essential (primary) hypertension; E78.00 Pure hypercholesterolemia, unspecified; Z53.9 Procedure and treatment not carried out, unspecified reason ==

== ENCOUNTER → 2022-11-07 | Outpatient (CLI) | payer MEDICARE, MEDICAID | LOC: M WHC 15:00 | PROVIDERS: ATTEND Nurse Practitioner Family | DX: Z12.31 Encounter for screening mammogram for malignant neoplasm of breast (principal) ==

== ENCOUNTER → 2022-12-08 | Outpatient (CLI) | payer MEDICARE, MEDICAID ==
[2022-12-08 15:13] LABS: BASO # 0.1 10^3/uL (0.0-0.2); BASO % 0.9 % (0.0-1.0); EOS # 0.1 10^3/uL (0.0-0.5); EOS % 1.4 % (0.0-3.0); HEMATOCRIT 42.2 % (36.0-47.0); HEMOGLOBIN 13.6 g/dl (12.0-15.5); LYMPH # 1.7 10^3/uL (1.5-5.0); LYMPH % 20.1 % (24.0-44.0); MEAN CORPUSCULAR HEMOGLOBIN 30.6 pg (27.0-33.0); MEAN CORPUSCULAR HGB CONC 32.2 g/dl (32.0-36.5); MEAN CORPUSCULAR VOLUME 94.8 fl (80.0-96.0); MONO # 0.7 10^3/uL (0.0-0.8); MONO % 7.9 % (2.0-8.0); NEUTROPHILS # 5.9 10^3/uL (1.5-8.5); NEUTROPHILS % 69.3 % (36.0-66.0); PLATELET COUNT, AUTOMATED 277 10^3/uL (150-450); RED BLOOD COUNT 4.45 10^6/uL (4.00-5.40); WHITE BLOOD COUNT 8.5 10^3/uL (4.0-10.0)
[2022-12-08 15:35] LABS: ALBUMIN 4.3 G/DL (3.2-5.2); BILIRUBIN,TOTAL 0.5 MG/DL (0.3-1.2); CALCIUM LEVEL 9.8 MG/DL (8.3-10.6); CHOLESTEROL RISK RATIO 3.33 (<5); CREATININE FOR GFR 1.01 MG/DL (0.55-1.30); GLOMERULAR FILTRATION RATE 57.7 (>39); HDL CHOLESTEROL 64.8 MG/DL (>40); LDL CHOLESTEROL 131.8 MG/DL (<100); NON-HDL-C 151.2 MG/DL; POTASSIUM SERUM 4.7 MMOL/L (3.5-5.1); THYROID STIMULATING HORMONE 2.765 uIU/ML (0.55-4.78); TOTAL 25(OH) VITAMIN D 35.9 NG/ML (20.0-100.0)
== END ==
LOC: M PLALAB 10:54
PROVIDERS: ATTEND Nurse Practitioner Family
DX: I10 Essential (primary) hypertension (principal); E55.9 Vitamin D deficiency, unspecified; E78.00 Pure hypercholesterolemia, unspecified

== ENCOUNTER → 2023-05-25 | Outpatient (REF) | payer MEDICARE, MEDICAID ==
[~2023-05-25] MED LIST changes: -FLUT50SP17; +FLUTISP
== END ==
LOC: M LAB REF 14:55
PROVIDERS: ATTEND Internal Medicine Pulmonary Disease
DX: J43.1 Panlobular emphysema (principal)

== ENCOUNTER → 2023-08-10 | Outpatient (CLI) | payer MEDICARE, MEDICAID ==
[2023-08-10 15:27] LABS: BASO # 0.1 10^3/uL (0.0-0.2); BASO % 1.1 % (0.0-1.0); EOS # 0.3 10^3/uL (0.0-0.5); EOS % 2.5 % (0.0-3.0); HEMATOCRIT 38.7 % (36.0-47.0); HEMOGLOBIN 12.1 g/dl (12.0-15.5); LYMPH # 1.8 10^3/uL (1.5-5.0); LYMPH % 16.6 % (24.0-44.0); MEAN CORPUSCULAR HEMOGLOBIN 29.2 pg (27.0-33.0); MEAN CORPUSCULAR HGB CONC 31.3 g/dl (32.0-36.5); MEAN CORPUSCULAR VOLUME 93.5 fl (80.0-96.0); MONO # 0.8 10^3/uL (0.0-0.8); MONO % 7.5 % (2.0-8.0); NEUTROPHILS # 7.6 10^3/uL (1.5-8.5); NEUTROPHILS % 71.6 % (36.0-66.0); PLATELET COUNT, AUTOMATED 437 10^3/uL (150-450); RED BLOOD COUNT 4.14 10^6/uL (4.00-5.40); WHITE BLOOD COUNT 10.6 10^3/uL (4.0-10.0)
[2023-08-10 15:58] LABS: ALBUMIN 3.6 G/DL (3.2-5.2); BILIRUBIN,TOTAL 0.4 MG/DL (0.3-1.2); CALCIUM LEVEL 9.6 MG/DL (8.3-10.6); CHOLESTEROL RISK RATIO 4.24 (<5); GLOMERULAR FILTRATION RATE 58.2 (>39); HDL CHOLESTEROL 44.1 MG/DL (>40); LDL CHOLESTEROL 122.7 MG/DL (<100); NON-HDL-C 142.9 MG/DL; POTASSIUM SERUM 5.2 MMOL/L (3.5-5.1); TOTAL PROTEIN 6.7 G/DL (5.7-8.2)
== END ==
LOC: M PLALAB 12:00
PROVIDERS: ATTEND Nurse Practitioner Family
DX: I10 Essential (primary) hypertension (principal); E78.00 Pure hypercholesterolemia, unspecified; E55.9 Vitamin D deficiency, unspecified

== ENCOUNTER → 2023-08-17 | Outpatient (REF) | payer MEDICARE, MEDICAID, OTHER | LOC: M SFHCPLAZ 16:50 | PROVIDERS: ATTEND Nurse Practitioner Family | DX: J34.89 Other specified disorders of nose and nasal sinuses (principal) ==

== ENCOUNTER → 2023-11-09 | Outpatient (CLI) | payer MEDICAID, MEDICARE | LOC: M WHC 14:01 | PROVIDERS: ATTEND Nurse Practitioner Family | DX: Z12.31 Encounter for screening mammogram for malignant neoplasm of breast (principal); Z13.820 Encounter for screening for osteoporosis; M85.851 Other specified disorders of bone density and structure, right thigh; M85.852 Other specified disorders of bone density and structure, left thigh ==

== ENCOUNTER → 2024-02-10 | Outpatient (CLI) | payer MEDICARE ==
[~2024-02-10] MED LIST changes: -ADV250INH INH; +ADVA1AER9 INH; -AUGM0.05 EXT; +AUGM0.0511 EXT
[2024-02-10 13:44] LABS: BASO # 0.1 10^3/uL (0.0-0.2); BASO % 0.3 % (0.0-1.0); EOS % 0.2 % (0.0-3.0); HEMATOCRIT 43.1 % (36.0-47.0); HEMOGLOBIN 13.5 g/dl (12.0-15.5); LYMPH # 2.5 10^3/uL (1.5-5.0); LYMPH % 14.2 % (24.0-44.0); MEAN CORPUSCULAR HEMOGLOBIN 29.7 pg (27.0-33.0); MEAN CORPUSCULAR HGB CONC 31.3 g/dl (32.0-36.5); MEAN CORPUSCULAR VOLUME 94.9 fl (80.0-96.0); MONO # 1.2 10^3/uL (0.0-0.8); MONO % 6.7 % (2.0-8.0); NEUTROPHILS # 13.7 10^3/uL (1.5-8.5); NEUTROPHILS % 77.2 % (36.0-66.0); PLATELET COUNT, AUTOMATED 477 10^3/uL (150-450); RED BLOOD COUNT 4.54 10^6/uL (4.00-5.40); WHITE BLOOD COUNT 17.7 10^3/uL (4.0-10.0)
[2024-02-10 14:11] LABS: ALBUMIN 3.9 G/DL (3.2-5.2); ALKALINE PHOSPHATASE 111 U/L (35-104); ALT/SGPT 13 U/L (7.0-40); AST/SGOT 13 U/L (<34); BILIRUBIN,TOTAL 0.4 MG/DL (0.3-1.2); BLOOD UREA NITROGEN 29 MG/DL (9-23); CALCIUM LEVEL 10.5 MG/DL (8.3-10.6); CARBON DIOXIDE LEVEL 30 MMOL/L (20-31); CHLORIDE LEVEL 102 MMOL/L (98-107); CHOLESTEROL LEVEL 215 MG/DL (<200); CHOLESTEROL RISK RATIO 2.63 (<5); CREATININE FOR GFR 0.92 MG/DL (0.55-1.30); GLOMERULAR FILTRATION RATE > 60.0 (>39); GLUCOSE, FASTING 83 MG/DL (74-106); HDL CHOLESTEROL 81.7 MG/DL (>40); LDL CHOLESTEROL 115.9 MG/DL (<100); NON-HDL-C 133.3 MG/DL; SODIUM LEVEL 142 MMOL/L (136-145); TOTAL PROTEIN 7.3 G/DL (5.7-8.2); TRIGLYCERIDES LEVEL 87 MG/DL (<150)
[2024-02-10 14:13] LABS: TOTAL 25(OH) VITAMIN D 22.8 NG/ML (20.0-100.0)
== END ==
LOC: M PLALAB 10:03
PROVIDERS: ATTEND Nurse Practitioner Family
DX: I10 Essential (primary) hypertension (principal); E55.9 Vitamin D deficiency, unspecified; E78.00 Pure hypercholesterolemia, unspecified

== ENCOUNTER 2024-08-15 13:38 | Inpatient (IN) | payer MEDICARE, MEDICAID ==
[~2024-08-15] VITALS: Ht 147.3 cm; Wt 38.7 kg
[~2024-08-15 13:38] MED LIST changes: -AUGM0.0511 EXT; +AUGM0.0511 TOP
[2024-08-15 14:30] LABS: BASO # 0.1 10^3/uL (0.0-0.2); BASO % 0.7 % (0.0-1.0); EOS # 0.3 10^3/uL (0.0-0.5); EOS % 1.5 % (0.0-3.0); HEMATOCRIT 37.3 % (36.0-47.0); HEMOGLOBIN 11.2 g/dl (12.0-15.5); LYMPH # 1.3 10^3/uL (1.5-5.0); LYMPH % 7.5 % (24.0-44.0); MEAN CORPUSCULAR VOLUME 89.9 fl (80.0-96.0); MONO # 1.1 10^3/uL (0.0-0.8); MONO % 6.6 % (2.0-8.0); NEUTROPHILS # 13.9 10^3/uL (1.5-8.5); NEUTROPHILS % 83.1 % (36.0-66.0); PLATELET COUNT, AUTOMATED 529 10^3/uL (150-450); RED BLOOD COUNT 4.15 10^6/uL (4.00-5.40); WHITE BLOOD COUNT 16.7 10^3/uL (4.0-10.0)
[2024-08-15 14:58] LABS: ALBUMIN 3.5 G/DL (3.2-5.2); ALKALINE PHOSPHATASE 97 U/L (35-104); ALT/SGPT 10 U/L (7.0-40); AST/SGOT 19 U/L (<34); BILIRUBIN,DIRECT < 0.1 MG/DL (<0.4); BILIRUBIN,TOTAL 0.3 MG/DL (0.3-1.2); BLOOD UREA NITROGEN 21 MG/DL (9-23); CALCIUM LEVEL 9.9 MG/DL (8.3-10.6); CARBON DIOXIDE LEVEL 27 MMOL/L (20-31); CHLORIDE LEVEL 99 MMOL/L (98-107); CK-MB VALUE MASS < 1.0 NG/ML (<3.6); CREATININE FOR GFR 0.97 MG/DL (0.55-1.30); GLOMERULAR FILTRATION RATE 62.1 (>39); GLUCOSE, FASTING 95 MG/DL (74-106); POTASSIUM SERUM 5.2 MMOL/L (3.5-5.1); SODIUM LEVEL 137 MMOL/L (136-145); TOTAL PROTEIN 7.3 G/DL (5.7-8.2)
[2024-08-15 15:03] LABS: CPK CREATINE PHOSPHOKINASE 34 U/L (34-145)
[2024-08-15] MEDS ORDERED: ALBUTEROL SULFATE 2.5 MG/0.5 ML INH CONCENTRATE NEB SOLN NEB ONE (15:25)
[2024-08-15 17:50] VITALS: BP 172/74
[2024-08-15] MEDS: MIDODRINE 5 MG TAB PO ONE (17:50)
[2024-08-15] MEDS ORDERED: BREO1INH3 INH (17:59)
[2024-08-15] MEDS ORDERED: LOSA25TA13 PO (17:59)
[2024-08-15] MEDS ORDERED: SPIR-10 PO (17:59)
[2024-08-15] MEDS ORDERED: SPIR12.9 INH (17:59)
[2024-08-15] MEDS ORDERED: HOME MED LIST COMPLETE! XX SCH (18:00)
[2024-08-15] MEDS: LR 1,000 ML IV ONE (18:21)
[2024-08-15] MEDS: PATIROMER SORBITEX CALCIUM 8.4GM POWDER PACKET PO ONE (18:35)
[2024-08-15] MEDS: CALCIUM GLUCONATE 1,000 MG in DEXTROSE 5% (D5W) MINI-BAG PLU 100 ML IV ONE (18:35)
[2024-08-15 18:48] LABS: POTASSIUM SERUM 4.5 MMOL/L (3.5-5.1)
[2024-08-15 18:49] LABS: INR 1.05; PARTIAL THROMBOPLASTIN TIME 27.5 SECONDS (24.8-34.2)
[2024-08-15 18:56] LABS: CK-MB VALUE MASS < 1.0 NG/ML (<3.6)
[2024-08-15 18:57] LABS: C REACTIVE PROTEIN QUANTITATIV 6.34 MG/DL (<1.0)
[2024-08-15 18:58] LABS: CPK CREATINE PHOSPHOKINASE 34 U/L (34-145)
[2024-08-15 19:09] LABS: PROCALCITONIN 0.16 ng/ml
[2024-08-15 19:55] VITALS: BP 164/77; TEMP 97.3; O2SAT 93
[2024-08-15] MEDS: ALBUTEROL SULFATE 2.5 MG/0.5 ML INH CONCENTRATE NEB SOLN NEB SCH (20:30)
[2024-08-15] MEDS: IPRATROPIUM HFA INHALER 12.9 GRAMS INH SCH (20:31)
[2024-08-15] MEDS: cefTRIAXone SOD 2 GM in DEXTROSE 5% (D5W) ADV/MINI-BAG 50 ML IV SCH (21:34)
[2024-08-15 23:05] VITALS: BP 115/57; TEMP 98.7; O2SAT 94
[2024-08-16] MEDS: MORPHINE 2 MG/ML 1 ML VIAL IV PRN (00:04)
[2024-08-16] MEDS: DOXYCYCLINE HYCLATE 100 MG TABLET PO SCH (00:04)
[2024-08-16 00:44] LABS: CK-MB VALUE MASS < 1.0 NG/ML (<3.6)
[2024-08-16 00:45] LABS: CPK CREATINE PHOSPHOKINASE 31 U/L (34-145)
[2024-08-16] MEDS: ACETAMINOPHEN 325 MG TAB PO PRN (01:14)
[2024-08-16 03:16] VITALS: BP 99/52; TEMP 97.4; O2SAT 95
[2024-08-16 06:23] LABS: BASO # 0.1 10^3/uL (0.0-0.2); BASO % 0.7 % (0.0-1.0); EOS # 0.3 10^3/uL (0.0-0.5); EOS % 1.8 % (0.0-3.0); HEMATOCRIT 30.8 % (36.0-47.0); HEMOGLOBIN 9.5 g/dl (12.0-15.5); LYMPH # 1.4 10^3/uL (1.5-5.0); LYMPH % 8.6 % (24.0-44.0); MEAN CORPUSCULAR HEMOGLOBIN 27.3 pg (27.0-33.0); MEAN CORPUSCULAR HGB CONC 30.8 g/dl (32.0-36.5); MEAN CORPUSCULAR VOLUME 88.5 fl (80.0-96.0); MONO # 1.5 10^3/uL (0.0-0.8); MONO % 9.1 % (2.0-8.0); NEUTROPHILS # 13.1 10^3/uL (1.5-8.5); NEUTROPHILS % 79.3 % (36.0-66.0); RED BLOOD COUNT 3.48 10^6/uL (4.00-5.40); WHITE BLOOD COUNT 16.5 10^3/uL (4.0-10.0)
[2024-08-16 06:26] LABS: PLATELET COUNT, AUTOMATED 418 10^3/uL (150-450)
[2024-08-16 06:43] LABS: CALCIUM LEVEL 9.5 MG/DL (8.3-10.6); CHOLESTEROL RISK RATIO 4.13 (<5); CREATININE FOR GFR 0.98 MG/DL (0.55-1.30); GLOMERULAR FILTRATION RATE 61.3 (>39); HDL CHOLESTEROL 33.4 MG/DL (>40); NON-HDL-C 104.6 MG/DL; POTASSIUM SERUM 4.6 MMOL/L (3.5-5.1)
[2024-08-16 06:45] LABS: FREE T4 0.99 NG/DL (0.89-1.76); THYROID STIMULATING HORMONE 2.67 uIU/ML (0.55-4.78)
[2024-08-16 06:49] LABS: HEMOGLOBIN A1c 5.5 % (4.0-6.0)
[2024-08-16 07:21] VITALS: BP 106/54; TEMP 97; O2SAT 97
[2024-08-16 15:38] VITALS: BP 117/57; TEMP 97.3; O2SAT 96
[2024-08-16] MEDS: BETAMETHASONE DIP 0.05% OINT 15 GM TOP PRN (17:24)
[2024-08-16 19:14] VITALS: BP 119/57; TEMP 98.2; O2SAT 96
[2024-08-17] VITALS (13 sets, daily range): BP systolic 95–155; BP diastolic 52–91; TEMP 96.8–99.3; O2SAT 90–99
[2024-08-17 06:26] LABS: BASO # 0.1 10^3/uL (0.0-0.2); BASO % 0.7 % (0.0-1.0); EOS # 0.5 10^3/uL (0.0-0.5); EOS % 2.8 % (0.0-3.0); HEMATOCRIT 30.6 % (36.0-47.0); HEMOGLOBIN 9.5 g/dl (12.0-15.5); LYMPH # 1.2 10^3/uL (1.5-5.0); LYMPH % 7.4 % (24.0-44.0); MEAN CORPUSCULAR HEMOGLOBIN 27.3 pg (27.0-33.0); MEAN CORPUSCULAR VOLUME 87.9 fl (80.0-96.0); MONO # 1.4 10^3/uL (0.0-0.8); MONO % 8.5 % (2.0-8.0); NEUTROPHILS # 13.3 10^3/uL (1.5-8.5); NEUTROPHILS % 80.1 % (36.0-66.0); PLATELET COUNT, AUTOMATED 414 10^3/uL (150-450); RED BLOOD COUNT 3.48 10^6/uL (4.00-5.40); WHITE BLOOD COUNT 16.6 10^3/uL (4.0-10.0)
[2024-08-17 06:56] LABS: CALCIUM LEVEL 8.8 MG/DL (8.3-10.6); CREATININE FOR GFR 0.86 MG/DL (0.55-1.30); GLOMERULAR FILTRATION RATE 71.7 (>39); POTASSIUM SERUM 4.5 MMOL/L (3.5-5.1)
[2024-08-17] MEDS ORDERED: propofoL 200 MG/20 ML VIAL As Ordered ONE (07:21)
[2024-08-17] MEDS ORDERED: fentaNYL 100 MCG/2 ML INJECTION As Ordered ONE (07:21)
[2024-08-17] MEDS ORDERED: ROCURONIUM BROMIDE 50MG/5ML VIAL As Ordered ONE (07:21)
[2024-08-17] MEDS ORDERED: LIDOCAINE 2% 100 MG/5 ML SDV (FOR ANES.) As Ordered ONE (07:21)
[2024-08-17] MEDS ORDERED: MIDAZOLAM INJ 2 MG/2 ML VIAL As Ordered ONE (07:21)
[2024-08-17] MEDS: TIOTROPIUM BROM 2.5MCG/ACTUATION 4GM INH INH SCH (08:00)
[2024-08-17] MEDS: ADVAIR HFA 230/21 MCG INHALER INH SCH (08:00)
[2024-08-17] MEDS: CETACAINE SPRAY 5 GM As Ordered ONE (09:07)
[2024-08-17] MEDS: EPINEPHrine 1 MG/10 ML SYRINGE 1.5IN As Ordered ONE (09:14)
[2024-08-17] MEDS ORDERED: PHENYLephrine 500MCG 5ML (100MCG/ML) SYRINGE As Ordered ONE (09:19)
[2024-08-17] MEDS ORDERED: dexAMETHasone 4 MG/ML 1 ML VIAL As Ordered ONE (09:20)
[2024-08-17] MEDS ORDERED: ONDANSETRON 4MG 2ML VIAL As Ordered ONE (09:20)
[2024-08-17] MEDS ORDERED: SUGAMMADEX SODIUM 500 MG/5 ML VIAL As Ordered ONE (09:20)
[2024-08-17] MEDS: IPRATROPIUM 0.5 MG/2.5 ML (0.02%) SOLN NEB INH PRN (10:58)
[2024-08-17] MEDS: ALBUTEROL SULFATE 2.5 MG/0.5 ML INH CONCENTRATE NEB SOLN NEB PRN (10:58)
[2024-08-17] MEDS: LACTOBACILLUS ACIDOPHILUS CAP PO SCH (11:51)
[2024-08-17] MEDS: PERCOCET 5MG/325MG TAB PO PRN (11:51)
[2024-08-17] MEDS: ALPRAZolam 0.25 MG TAB PO PRN (13:08)
[2024-08-17 15:29] LABS: CLOSTRIDIUM DIFFICILE PCR NEGATIVE (NEGATIVE)
[2024-08-17] MEDS ORDERED: FIDAXOMICIN 200 MG TAB PO SCH (21:00)
[2024-08-18] VITALS (7 sets, daily range): BP systolic 105–119; BP diastolic 54–63; TEMP 97–98.1; O2SAT 93–98
[2024-08-18 06:34] LABS: BASO % 0.1 % (0.0-1.0); HEMATOCRIT 30.3 % (36.0-47.0); HEMOGLOBIN 9.3 g/dl (12.0-15.5); LYMPH # 0.9 10^3/uL (1.5-5.0); LYMPH % 5.6 % (24.0-44.0); MEAN CORPUSCULAR HEMOGLOBIN 27.1 pg (27.0-33.0); MEAN CORPUSCULAR HGB CONC 30.7 g/dl (32.0-36.5); MEAN CORPUSCULAR VOLUME 88.3 fl (80.0-96.0); MONO # 0.9 10^3/uL (0.0-0.8); NEUTROPHILS # 13.5 10^3/uL (1.5-8.5); NEUTROPHILS % 87.5 % (36.0-66.0); PLATELET COUNT, AUTOMATED 420 10^3/uL (150-450); RED BLOOD COUNT 3.43 10^6/uL (4.00-5.40); WHITE BLOOD COUNT 15.4 10^3/uL (4.0-10.0)
[2024-08-18 06:57] LABS: CALCIUM LEVEL 9.3 MG/DL (8.3-10.6); CREATININE FOR GFR 0.79 MG/DL (0.55-1.30); GLOMERULAR FILTRATION RATE 79.4 (>39); POTASSIUM SERUM 4.8 MMOL/L (3.5-5.1)
[2024-08-18] MEDS ORDERED: PERCOCET PO (10:42)
[2024-08-18] MEDS ORDERED: ALPR0.25 PO (10:42)
[2024-08-19 04:01] VITALS: BP 105/60; TEMP 97.7; O2SAT 96
[2024-08-19 05:53] LABS: BASO # 0.1 10^3/uL (0.0-0.2); BASO % 0.7 % (0.0-1.0); EOS # 0.4 10^3/uL (0.0-0.5); EOS % 2.2 % (0.0-3.0); HEMATOCRIT 29.4 % (36.0-47.0); LYMPH # 1.6 10^3/uL (1.5-5.0); LYMPH % 9.1 % (24.0-44.0); MEAN CORPUSCULAR HEMOGLOBIN 27.7 pg (27.0-33.0); MEAN CORPUSCULAR HGB CONC 30.6 g/dl (32.0-36.5); MEAN CORPUSCULAR VOLUME 90.5 fl (80.0-96.0); MONO # 1.5 10^3/uL (0.0-0.8); MONO % 8.1 % (2.0-8.0); NEUTROPHILS # 14.2 10^3/uL (1.5-8.5); NEUTROPHILS % 79.3 % (36.0-66.0); PLATELET COUNT, AUTOMATED 413 10^3/uL (150-450); RED BLOOD COUNT 3.25 10^6/uL (4.00-5.40); WHITE BLOOD COUNT 17.9 10^3/uL (4.0-10.0)
[2024-08-19 06:17] LABS: CALCIUM LEVEL 8.8 MG/DL (8.3-10.6); CREATININE FOR GFR 0.84 MG/DL (0.55-1.30); GLOMERULAR FILTRATION RATE 73.8 (>39)
[2024-08-19 08:00] VITALS: BP 117/74; TEMP 98.1; O2SAT 97
[2024-08-19] MEDS: LOPERAMIDE 2 MG CAPLET PO ONE (11:56)
[2024-08-19 12:00] VITALS: BP 118/76; TEMP 97.9; O2SAT 98
[2024-08-19] MEDS ORDERED: ALPRAZolam 0.25 MG TAB PO PRN (12:40)
[2024-08-19] MEDS ORDERED: oxyCODONE 5MG TAB PO PRN (12:40)
[2024-08-19] MEDS ORDERED: MIRALAX *UNIT DOSE* 17 GM PACKET PO PRN (12:40)
[2024-08-19 20:18] LABS: URINE STREP PNEUMONIAE ANTIGEN NOT DETECTED (NOT DETECT)
[2024-08-19 22:53] LABS: MYCOPLASMA PNEUMONIAE IGG 4.16 (<=0.90)
[2024-08-22] MEDS ORDERED: OXYC-517 PO (09:52)
[2024-08-22] MEDS ORDERED: IPRA0.00 NEB (09:56)
[2024-08-29] MEDS ORDERED: DOCU-122 PO (08:31)
[2024-08-29] MEDS ORDERED: LEVO1TAB40 PO (10:10)
[2024-08-29] MEDS ORDERED: ONDA-282 PO ×2 (10:10→18:22)
[2024-09-06] MEDS ORDERED: MIRA3350 PO (10:21)
[2024-09-06] MEDS ORDERED: RELI150T PO (10:26)
[2024-09-09] MEDS ORDERED: MIRA3350 PO (12:04)
[2024-09-09] MEDS ORDERED: RELI150T PO (12:04)
[2024-09-12] MEDS ORDERED: OXYC-517 PO (15:00)
[2024-09-26] MEDS ORDERED: OXYC-517 PO (11:43)
[2024-09-27] MEDS ORDERED: LACT20EL PO (14:07)
[2024-10-17] MEDS ORDERED: OXYC-517 PO (14:30)
[2024-10-17] MEDS ORDERED: LIDO30CR18 TOP (15:03)
[2024-11-07] MEDS ORDERED: VALT1TAB PO (14:20)
[2024-11-07] MEDS ORDERED: OMEP-173 PO (14:20)
== END 2024-08-19 13:50 | disposition home or self-care (01) | DRG 166 ==
LOC: M ED 13:38 → M ED INP 17:29 → M PCU 20:00 → M ED INP 08-16 07:30 → M PCU 08-16 07:57 → M MSPAV 08-17 16:25
PROVIDERS: ADMIT General Practice; ATTEND General Practice
PROC: 0BBG8ZX Excision of Left Upper Lung Lobe, Via Natural or Artificial Opening Endoscopic, Diagnostic (ICD-10-PCS; principal; 2024-08-17 08:45)
DX: C34.12 Malignant neoplasm of upper lobe, left bronchus or lung (principal); J18.9 Pneumonia, unspecified organism; J93.9 Pneumothorax, unspecified; E46 Unspecified protein-calorie malnutrition; J98.11 Atelectasis; R04.2 Hemoptysis; R64 Cachexia; I10 Essential (primary) hypertension; J44.9 Chronic obstructive pulmonary disease, unspecified; E78.5 Hyperlipidemia, unspecified; E87.5 Hyperkalemia; R07.81 Pleurodynia; R19.7 Diarrhea, unspecified; F41.9 Anxiety disorder, unspecified; M81.0 Age-related osteoporosis without current pathological fracture; Z86.16 Personal history of COVID-19; Z87.891 Personal history of nicotine dependence; Z91.041 Radiographic dye allergy status; Z91.040 Latex allergy status; Z91.018 Allergy to other foods; Z88.8 Allergy status to other drugs, medicaments and biological substances; Z91.012 Allergy to eggs; Z88.0 Allergy status to penicillin; Z88.2 Allergy status to sulfonamides; Z88.6 Allergy status to analgesic agent; Z79.899 Other long term (current) drug therapy

== ENCOUNTER 2024-08-29 15:30 | Emergency (ER) | payer MEDICARE, MEDICAID ==
[~2024-08-29] VITALS: Ht 142.2 cm; Wt 39.2 kg
[~2024-08-29 15:30] MED LIST changes: -IPRA0.00 INH; -MIRA3350 PO; -RELI150T PO; -XANA0.25 PO
[2024-08-29] MEDS ORDERED: XANA0.25 PO (18:22)
[2024-08-29] MEDS ORDERED: IPRA0.00 INH (18:22)
[2024-08-29] MEDS ORDERED: OXYC-517 PO (18:22)
[2024-08-29] MEDS ORDERED: ONDA-282 PO (18:22)
[2024-08-29] MEDS ORDERED: HOME MED LIST COMPLETE! XX SCH (18:25)
[2024-08-29 19:15] VITALS: BP 114/59; TEMP 98.1; O2SAT 96
[2024-09-06] MEDS ORDERED: MIRA3350 PO (10:21)
[2024-09-06] MEDS ORDERED: RELI150T PO (10:26)
== END 2024-08-29 19:30 | disposition home or self-care (01) ==
LOC: M ED 15:30 → EDBD 15:30 → M ED 19:30
DX: M54.50 Low back pain, unspecified (principal); F41.9 Anxiety disorder, unspecified; J44.9 Chronic obstructive pulmonary disease, unspecified; Z85.118 Personal history of other malignant neoplasm of bronchus and lung; Z91.041 Radiographic dye allergy status; Z91.012 Allergy to eggs; Z91.040 Latex allergy status; Z88.0 Allergy status to penicillin; Z88.2 Allergy status to sulfonamides; Z88.6 Allergy status to analgesic agent; Z88.8 Allergy status to other drugs, medicaments and biological substances; Z91.018 Allergy to other foods; Z79.52 Long term (current) use of systemic steroids; Z79.1 Long term (current) use of non-steroidal anti-inflammatories (NSAID); Z79.83 Long term (current) use of bisphosphonates; Z79.899 Other long term (current) drug therapy

== ENCOUNTER → 2024-08-29 | Outpatient (CLI) | payer MEDICARE, MEDICAID ==
[~2024-08-29] MED LIST changes: +ALPR0.25 PO; +BREO1INH3 INH; +DOCU-122 PO; +IPRA0.00 INH; +IPRA0.00 NEB; +LOSA25TA13 PO; +MIRA3350 PO; +ONDA-282 PO; +OXYC-517 PO; +PERCOCET PO; +RELI150T PO; +SPIR-10 PO; +SPIR12.9 INH; +XANA0.25 PO
== END ==
LOC: M PLARAD 11:47
PROVIDERS: ATTEND General Practice
DX: C34.12 Malignant neoplasm of upper lobe, left bronchus or lung (principal)

== ENCOUNTER 2024-09-14 10:53 | Outpatient (RCR) | payer MEDICARE, MEDICAID ==
[~2024-09-14 10:53] MED LIST changes: +IPRA0.00 INH; +MIRA3350 PO; +RELI150T PO; +XANA0.25 PO
[2024-09-14] MEDS ORDERED: LACT20EL PO (11:47)
[2024-09-19] MEDS ORDERED: LEXA5TAB13 PO (09:50)
[2024-09-26] MEDS ORDERED: OXYC-517 PO (11:43)
[2024-09-27] MEDS ORDERED: LACT20EL PO (14:07)
== END 2024-09-22 ==
LOC: M ONCR 10:53
PROVIDERS: ATTEND General Practice
DX: Z51.0 Encounter for antineoplastic radiation therapy (principal); C34.12 Malignant neoplasm of upper lobe, left bronchus or lung

== ENCOUNTER → 2024-09-19 | Outpatient (CLI) | payer MEDICARE, MEDICAID ==
[~2024-09-19] VITALS: Ht 142.2 cm; Wt 39.2 kg
[~2024-09-19] MED LIST changes: +LACT20EL PO; +LEXA5TAB13 PO
[2024-09-19 09:17] VITALS: BP 136/72; O2SAT 98
== END ==
LOC: M PAL 09:00
PROVIDERS: ATTEND Physician Assistant
DX: Z51.5 Encounter for palliative care (principal); C34.00 Malignant neoplasm of unspecified main bronchus; Z92.21 Personal history of antineoplastic chemotherapy; Z92.3 Personal history of irradiation; Z79.891 Long term (current) use of opiate analgesic; J44.9 Chronic obstructive pulmonary disease, unspecified; I10 Essential (primary) hypertension; E78.5 Hyperlipidemia, unspecified; F41.9 Anxiety disorder, unspecified; K58.9 Irritable bowel syndrome, unspecified; Z91.040 Latex allergy status; Z91.012 Allergy to eggs; Z88.0 Allergy status to penicillin; Z88.1 Allergy status to other antibiotic agents; Z88.2 Allergy status to sulfonamides; Z88.6 Allergy status to analgesic agent; Z91.018 Allergy to other foods; Z91.041 Radiographic dye allergy status; Z79.899 Other long term (current) drug therapy

== ENCOUNTER → 2024-09-27 | Outpatient (CLI) | payer MEDICARE, MEDICAID ==
[~2024-09-27] VITALS: Ht 147.3 cm; Wt 40.0 kg
[2024-09-27 07:15] VITALS: TEMP 98.1
[2024-09-27] MEDS: NS (Normal Saline) 0.9% 1,000 ML IV SCH (08:18)
[2024-09-27] MEDS: ceFAZolin SODIUM 2 GM in DEXTROSE 5% (D5W) ADV/MINI-BAG 50 ML IV ONE (08:18)
[2024-09-27] MEDS: MIDAZOLAM INJ 2 MG/2 ML VIAL IV PRN (08:26)
[2024-09-27] MEDS: LIDOCAINE 1% MDV 20 ML VIAL SC SCH (08:38)
[2024-09-27 09:20] VITALS: BP 126/67; O2SAT 98
== END ==
LOC: M IRPRO 07:01
PROVIDERS: ATTEND Internal Medicine Hematology & Oncology
DX: C34.90 Malignant neoplasm of unspecified part of unspecified bronchus or lung (principal)
CPT/HCPCS: 36561; 99152; J0690; J1642; J2250; J3010

== ENCOUNTER 2024-10-03 13:08 | Emergency (ER) | payer MEDICARE, MEDICAID ==
[~2024-10-03] VITALS: Ht 144.8 cm; Wt 40.0 kg
[2024-10-03 14:19] LABS: BASO # 0.1 10^3/uL (0.0-0.2); BASO % 0.6 % (0.0-1.0); EOS # 0.5 10^3/uL (0.0-0.5); EOS % 4.5 % (0.0-3.0); LYMPH # 0.5 10^3/uL (1.5-5.0); LYMPH % 4.4 % (24.0-44.0); MONO # 0.8 10^3/uL (0.0-0.8); MONO % 7.7 % (2.0-8.0); NEUTROPHILS # 8.8 10^3/uL (1.5-8.5); NEUTROPHILS % 81.1 % (36.0-66.0); PLATELET COUNT, AUTOMATED 420 10^3/uL (150-450)
[2024-10-03 14:38] LABS: INR 0.96
[2024-10-03 14:39] LABS: ALT/SGPT 12 U/L (7.0-40); AST/SGOT 15 U/L (<34); CALCIUM LEVEL 9.9 MG/DL (8.3-10.6); CARBON DIOXIDE LEVEL 28 MMOL/L (20-31); CHLORIDE LEVEL 99 MMOL/L (98-107); CREATININE FOR GFR 0.63 MG/DL (0.55-1.30); GLOMERULAR FILTRATION RATE > 90.0 (>39); POTASSIUM SERUM 4.5 MMOL/L (3.5-5.1); SODIUM LEVEL 138 MMOL/L (136-145)
[2024-10-03 14:42] LABS: FREE T4 0.98 NG/DL (0.89-1.76)
[2024-10-03 14:59] LABS: CK-MB VALUE MASS < 1.0 NG/ML (<3.6)
[2024-10-03 15:00] LABS: CPK CREATINE PHOSPHOKINASE 23 U/L (34-145)
[2024-10-03] MEDS ORDERED: HOME MED LIST COMPLETE! XX SCH (17:25)
[2024-10-03] MEDS ORDERED: SYMBICORT 160/4.5MCG INHALER 6GM INH SCH (20:00)
[2024-10-03] MEDS ORDERED: IPRATROPIUM 0.5 MG/ALBUTEROL 2.5 MG INH SOL UD 3 ML NEB SCH (20:00)
[2024-10-03] MEDS ORDERED: ACETAMINOPHEN 500 MG TAB PO PRN (20:50)
[2024-10-03] MEDS ORDERED: ENTER DRUG NAME HERE (PATIENT'S OWN MED) PO PRN (20:50)
[2024-10-03] MEDS ORDERED: ALBUTEROL 90 MCG/ACT 8 GM HFA INHALER INH PRN (20:50)
[2024-10-03] MEDS ORDERED: LACTULOSE 20 GM/30 ML SYRUP UDC PO PRN (20:50)
[2024-10-03] MEDS ORDERED: BISACODYL 10 MG SUPP PR ONE (20:55)
[2024-10-03] MEDS ORDERED: MIRALAX *UNIT DOSE* 17 GM PACKET PO SCH (21:00)
[2024-10-03] MEDS ORDERED: SENNA 8.6 MG TAB PO SCH (21:00)
[2024-10-03] MEDS ORDERED: MORPHINE 4 MG/ML 1 ML VIAL IV PRN (21:05)
[2024-10-03 21:15] VITALS: BP 143/72; TEMP 100.3
[2024-10-03] MEDS ORDERED: PILL CUTTER 1 EACH XX PRN (21:15)
[2024-10-03 21:24] VITALS: O2SAT 97
[2024-10-03] MEDS: ALPRAZolam 0.25 MG TAB PO PRN (21:25)
[2024-10-03] MEDS: ACETAMINOPHEN 500 MG TAB PO SCH (21:36)
[2024-10-04] MEDS ORDERED: TIOTROPIUM BROM 2.5MCG/ACTUATION 4GM INH INH SCH (08:00)
[2024-10-04] MEDS ORDERED: ESCITALOPRAM OXALATE 5 MG TABLET PO SCH (09:00)
[2024-10-04] MEDS ORDERED: CETIRIZINE 10 MG TAB PO SCH (09:00)
[2024-10-04] MEDS ORDERED: LACTULOSE 20 GM/30 ML SYRUP UDC PO SCH (09:00)
== END 2024-10-03 21:41 | disposition short-term general hospital (02) ==
LOC: M ED 13:08
DX: J98.19 Other pulmonary collapse (principal); J44.9 Chronic obstructive pulmonary disease, unspecified; J98.11 Atelectasis; J91.8 Pleural effusion in other conditions classified elsewhere; J43.9 Emphysema, unspecified; R91.1 Solitary pulmonary nodule; I31.39 Other pericardial effusion (noninflammatory); I45.9 Conduction disorder, unspecified; K58.9 Irritable bowel syndrome, unspecified; I10 Essential (primary) hypertension; E78.5 Hyperlipidemia, unspecified; E55.9 Vitamin D deficiency, unspecified; F41.9 Anxiety disorder, unspecified; Z90.89 Acquired absence of other organs; Z86.16 Personal history of COVID-19; Z87.891 Personal history of nicotine dependence; Z79.52 Long term (current) use of systemic steroids; Z79.83 Long term (current) use of bisphosphonates; Z79.899 Other long term (current) drug therapy; Z88.6 Allergy status to analgesic agent; Z91.02 Food additives allergy status; Z88.0 Allergy status to penicillin; Z88.2 Allergy status to sulfonamides; Z91.012 Allergy to eggs; Z91.041 Radiographic dye allergy status

== ENCOUNTER → 2024-10-20 | Outpatient (CLI) | payer MEDICARE, MEDICAID ==
[~2024-10-20] VITALS: Ht 142.2 cm; Wt 40.4 kg
[~2024-10-20] MED LIST changes: +LIDO30CR18 TOP
[2024-10-20 09:13] VITALS: BP 143/76; O2SAT 95
== END ==
LOC: M PAL 08:42
PROVIDERS: ATTEND Physician Assistant
DX: Z51.5 Encounter for palliative care (principal); C34.90 Malignant neoplasm of unspecified part of unspecified bronchus or lung; Z92.21 Personal history of antineoplastic chemotherapy; Z92.3 Personal history of irradiation; Z79.891 Long term (current) use of opiate analgesic; Z91.040 Latex allergy status; Z91.012 Allergy to eggs; Z88.0 Allergy status to penicillin; Z88.1 Allergy status to other antibiotic agents; Z88.2 Allergy status to sulfonamides; Z91.018 Allergy to other foods; Z91.041 Radiographic dye allergy status; Z79.899 Other long term (current) drug therapy

== ENCOUNTER 2024-10-21 13:52 | Outpatient (RCR) | payer MEDICARE, MEDICAID | END 2024-10-23 | LOC: M ONCR 13:52 | PROVIDERS: ATTEND General Practice | DX: Z51.0 Encounter for antineoplastic radiation therapy (principal); C34.12 Malignant neoplasm of upper lobe, left bronchus or lung ==

== ENCOUNTER 2024-11-16 14:00 | Outpatient (RCR) | payer MEDICARE, MEDICAID ==
[~2024-11-16 14:00] MED LIST changes: +OMEP-173 PO; +VALT1TAB PO
[2024-11-21] MEDS ORDERED: RELI150T PO (11:10)
== END 2024-11-22 ==
LOC: M ONCR 14:00
PROVIDERS: ATTEND General Practice
DX: Z51.0 Encounter for antineoplastic radiation therapy (principal); C34.12 Malignant neoplasm of upper lobe, left bronchus or lung

== ENCOUNTER → 2024-12-02 | Outpatient (CLI) | payer MEDICARE, MEDICAID | LOC: M PLAIMG 09:46 | PROVIDERS: ATTEND Student in an Organized Health Care Education/Training Program | DX: C34.90 Malignant neoplasm of unspecified part of unspecified bronchus or lung (principal); R91.1 Solitary pulmonary nodule; J90 Pleural effusion, not elsewhere classified; J98.11 Atelectasis; R91.8 Other nonspecific abnormal finding of lung field; J43.9 Emphysema, unspecified; J98.6 Disorders of diaphragm; M47.814 Spondylosis without myelopathy or radiculopathy, thoracic region; M47.816 Spondylosis without myelopathy or radiculopathy, lumbar region ==

== ENCOUNTER → 2024-12-05 | Outpatient (CLI) | payer MEDICARE, MEDICAID | LOC: M PLARAD 09:21 | PROVIDERS: ATTEND Internal Medicine Medical Oncology | DX: C34.12 Malignant neoplasm of upper lobe, left bronchus or lung (principal) | CPT/HCPCS: 70551; 78815; A9552 ==

== ENCOUNTER → 2024-12-05 | Outpatient (CLI) | payer MEDICARE, MEDICAID | LOC: M PLAIMG 09:23 | PROVIDERS: ATTEND Student in an Organized Health Care Education/Training Program | DX: C34.90 Malignant neoplasm of unspecified part of unspecified bronchus or lung (principal) ==

== ENCOUNTER 2024-12-12 11:39 | Inpatient (IN) | payer MEDICARE, MEDICAID ==
[~2024-12-12] VITALS: Ht 147.3 cm; Wt 37.2 kg
[~2024-12-12 11:39] MED LIST changes: -SUCR1TAB56 PO
[2024-12-12 16:07] LABS: VENOUS BASE EXCESS 3.4 (-2.0-2.0); VENOUS HCO3 27.1 MMOL/L (23.0-27.0); VENOUS O2 SATURATION 99.0 % (60.0-80.0); VENOUS PARTIAL PRESSURE CO2 37.8 mmHg (38.0-50.0); VENOUS PARTIAL PRESSURE O2 144.6 mmHg (30.0-50.0); VENOUS PH 7.473 UNITS (7.330-7.430); VENOUS STANDARD HCO3 27.5 MMOL/L; VENOUS TOTAL CO2 28.2 MMOL/L (24.0-28.0)
[2024-12-12 16:16] LABS: BASO # 0.1 10^3/uL (0.0-0.2); BASO % 0.7 % (0.0-1.0); EOS # 1.3 10^3/uL (0.0-0.5); EOS % 18.6 % (0.0-3.0); LYMPH # 0.5 10^3/uL (1.5-5.0); LYMPH % 6.9 % (24.0-44.0); MONO # 0.6 10^3/uL (0.0-0.8); MONO % 8.5 % (2.0-8.0); NEUTROPHILS # 4.2 10^3/uL (1.5-8.5); NEUTROPHILS % 61.2 % (36.0-66.0); PLATELET COUNT, AUTOMATED 327 10^3/uL (150-450)
[2024-12-12 16:35] LABS: CK-MB VALUE MASS < 1.0 NG/ML (<3.6)
[2024-12-12 16:37] LABS: CALCIUM LEVEL 8.4 MG/DL (8.3-10.6); CARBON DIOXIDE LEVEL 26 MMOL/L (20-31); CHLORIDE LEVEL 99 MMOL/L (98-107); CPK CREATINE PHOSPHOKINASE < 15 U/L (34-145); CREATININE FOR GFR 0.67 MG/DL (0.55-1.30); GLOMERULAR FILTRATION RATE > 90.0 (>39); POTASSIUM SERUM 4.5 MMOL/L (3.5-5.1); SODIUM LEVEL 135 MMOL/L (136-145)
[2024-12-12] MEDS: MEROPENEM 1 GM in IV 1 EA IV ONE (16:53)
[2024-12-12 17:06] LABS: INR 1.08
[2024-12-12] MEDS ORDERED: ENOXAPARIN 40 MG/0.4 ML SYRINGE (J1650 PER 10MG) SC ONE (17:30)
[2024-12-12 17:52] VITALS: BP 149/73
[2024-12-12] MEDS: MIDODRINE 5 MG TAB PO ONE (17:52)
[2024-12-12] MEDS: NS (Normal Saline) 0.9% 1,000 ML IV ONE (17:52)
[2024-12-12] MEDS ORDERED: SUCR1TAB56 PO (17:55)
[2024-12-12] MEDS ORDERED: HOME MED LIST COMPLETE! XX SCH (18:00)
[2024-12-12] MEDS: guaiFENesin ER TABLET 600 MG TAB PO SCH (20:35)
[2024-12-12] MEDS: DOXYCYCLINE HYCLATE 100 MG TABLET PO SCH (20:35)
[2024-12-12] MEDS: ENOXAPARIN 40 MG/0.4 ML SYRINGE (J1650 PER 10MG) SC SCH (20:36)
[2024-12-13] VITALS (20 sets, daily range): BP systolic 99–114; BP diastolic 52–62; TEMP 97.1–98.1; O2SAT 86–97
[2024-12-13] MEDS: MEROPENEM 1 GM in IV 1 EA IV SCH (00:47)
[2024-12-13 07:38] LABS: BASO # 0.1 10^3/uL (0.0-0.2); BASO % 0.6 % (0.0-1.0); EOS # 1.4 10^3/uL (0.0-0.5); EOS % 17.1 % (0.0-3.0); LYMPH # 0.4 10^3/uL (1.5-5.0); LYMPH % 5.4 % (24.0-44.0); MONO # 0.5 10^3/uL (0.0-0.8); MONO % 6.8 % (2.0-8.0); NEUTROPHILS # 5.3 10^3/uL (1.5-8.5); NEUTROPHILS % 66.8 % (36.0-66.0); PLATELET COUNT, AUTOMATED 355 10^3/uL (150-450)
[2024-12-13 08:01] LABS: CALCIUM LEVEL 8.4 MG/DL (8.3-10.6); CARBON DIOXIDE LEVEL 22 MMOL/L (20-31); CHLORIDE LEVEL 99 MMOL/L (98-107); CREATININE FOR GFR 0.70 MG/DL (0.55-1.30); GLOMERULAR FILTRATION RATE > 90.0 (>39); POTASSIUM SERUM 4.7 MMOL/L (3.5-5.1); SODIUM LEVEL 134 MMOL/L (136-145)
[2024-12-13] MEDS ORDERED: ALBUTEROL 90 MCG/ACT 8 GM HFA INHALER INH PRN (12:05)
[2024-12-13] MEDS ORDERED: ONDANSETRON 4MG ORAL DISINTEGRATING TAB PO PRN (12:05)
[2024-12-13] MEDS ORDERED: LACTULOSE 20 GM/30 ML SYRUP UDC PO PRN (12:05)
[2024-12-13] MEDS: OMEPRAZOLE 20MG CAP PO SCH (13:07)
[2024-12-13] MEDS: IPRATROPIUM 0.5 MG/ALBUTEROL 2.5 MG INH SOL UD 3 ML NEB SCH (14:05)
[2024-12-13] MEDS: TIOTROPIUM BROM 2.5MCG/ACTUATION 4GM INH INH SCH (20:00)
[2024-12-13] MEDS: SUCRALFATE 1 GM TAB PO SCH (20:07)
[2024-12-14] VITALS: BP 109/55; O2SAT 94
[2024-12-14 04:00] VITALS: BP 107/57; TEMP 97.2; O2SAT 97
[2024-12-14 06:05] LABS: BASO # 0.0 10^3/uL (0.0-0.2); BASO % 0.3 % (0.0-1.0); EOS # 0.9 10^3/uL (0.0-0.5); EOS % 12.9 % (0.0-3.0); LYMPH # 0.4 10^3/uL (1.5-5.0); LYMPH % 5.8 % (24.0-44.0); MONO # 0.7 10^3/uL (0.0-0.8); MONO % 9.2 % (2.0-8.0); NEUTROPHILS # 4.9 10^3/uL (1.5-8.5); NEUTROPHILS % 69.3 % (36.0-66.0); PLATELET COUNT, AUTOMATED 339 10^3/uL (150-450)
[2024-12-14 06:33] LABS: CALCIUM LEVEL 8.5 MG/DL (8.3-10.6); CARBON DIOXIDE LEVEL 25 MMOL/L (20-31); CHLORIDE LEVEL 97 MMOL/L (98-107); CREATININE FOR GFR 0.69 MG/DL (0.55-1.30); GLOMERULAR FILTRATION RATE > 90.0 (>39); POTASSIUM SERUM 4.3 MMOL/L (3.5-5.1); SODIUM LEVEL 134 MMOL/L (136-145)
[2024-12-14] MEDS: ACETAMINOPHEN 500 MG TAB PO PRN (07:39)
[2024-12-14] MEDS: ESCITALOPRAM OXALATE 5 MG TABLET PO SCH (08:13)
[2024-12-14] MEDS: ENOXAPARIN 40 MG/0.4 ML SYRINGE (J1650 PER 10MG) SC SCH (08:13)
[2024-12-14 20:05] VITALS: BP 105/66; TEMP 98.1; O2SAT 100
[2024-12-15 03:59] VITALS: BP 130/75; TEMP 97.9; O2SAT 94
[2024-12-15 12:00] VITALS: BP 123/73; TEMP 97.9; O2SAT 97
[2024-12-15 19:08] LABS: URINE STREP PNEUMONIAE ANTIGEN Not Detected (Not Detected)
[2024-12-15 20:13] VITALS: O2SAT 97
[2024-12-15 21:06] VITALS: BP_SYST 92; BP_SYST 96; BP_DIAS 52; BP_DIAS 57; TEMP 98.1; O2SAT 95
[2024-12-16] VITALS (8 sets, daily range): BP systolic 125–126; BP diastolic 71; TEMP 97.2–97.9; O2SAT 84–95
[2024-12-16] MEDS ORDERED: SENNA 8.6 MG TAB PO PRN (13:55)
[2024-12-16] MEDS: LACTULOSE 20 GM/30 ML SYRUP UDC PO ONE (15:20)
[2024-12-16 22:37] LABS: MYCOPLASMA PNEUMONIAE IGG 2.55 (<=0.90); MYCOPLASMA PNEUMONIAE IGM 94.0 U/mL (<770)
[2024-12-17 05:35] VITALS: BP 115/69; TEMP 97.3; O2SAT 92
[2024-12-17] MEDS: LACTULOSE 20 GM/30 ML SYRUP UDC PO ONE (09:25)
[2024-12-17] MEDS: SENNA 8.6 MG TAB PO ONE (09:26)
[2024-12-17 11:44] VITALS: BP 111/66; TEMP 97.2; O2SAT 95
[2024-12-17 18:04] VITALS: O2SAT 98
[2024-12-17 21:59] VITALS: BP 102/56; TEMP 97.5; O2SAT 91
[2024-12-18 05:00] VITALS: BP 123/75; TEMP 97.5; O2SAT 96
[2024-12-18 09:19] LABS: PLATELET COUNT, AUTOMATED 422 10^3/uL (150-450)
[2024-12-18 09:41] LABS: CALCIUM LEVEL 8.6 MG/DL (8.3-10.6); CARBON DIOXIDE LEVEL 31 MMOL/L (20-31); CHLORIDE LEVEL 100 MMOL/L (98-107); CREATININE FOR GFR 0.59 MG/DL (0.55-1.30); GLOMERULAR FILTRATION RATE > 90.0 (>39); POTASSIUM SERUM 4.1 MMOL/L (3.5-5.1); SODIUM LEVEL 140 MMOL/L (136-145)
[2024-12-18 12:01] VITALS: BP 118/70; TEMP 97.3; O2SAT 95
[2024-12-18 20:35] VITALS: BP 125/75; TEMP 97.7; O2SAT 92
[2024-12-18 22:00] VITALS: O2SAT 92
[2024-12-19] VITALS (7 sets, daily range): BP systolic 106–137; BP diastolic 62–84; TEMP 97–97.9; O2SAT 90–99
[2024-12-20 04:32] VITALS: BP 138/78; TEMP 97.5; O2SAT 97
[2024-12-20 09:55] LABS: PLATELET COUNT, AUTOMATED 420 10^3/uL (150-450)
[2024-12-20 10:35] LABS: CALCIUM LEVEL 9.8 MG/DL (8.3-10.6); CARBON DIOXIDE LEVEL 29.0 MMOL/L (20-31); CHLORIDE LEVEL 101.0 MMOL/L (98-107); CREATININE FOR GFR 0.74 MG/DL (0.55-1.30); GLOMERULAR FILTRATION RATE 85.9 (>39); POTASSIUM SERUM 4.3 MMOL/L (3.5-5.1); SODIUM LEVEL 141.0 MMOL/L (136-145)
[2024-12-20 12:00] VITALS: BP 107/69; TEMP 97.9; O2SAT 97
[2024-12-20 19:49] VITALS: BP 133/79; TEMP 97.7; O2SAT 98
[2024-12-21 04:44] VITALS: BP 149/82; TEMP 97.7; O2SAT 95
[2024-12-21] MEDS ORDERED: PRED10TA2 PO (09:01)
[2024-12-21 12:00] VITALS: BP 145/80; TEMP 97.5; O2SAT 94
[2024-12-21] MEDS: SODIUM CHLORIDE 0.9% INJ 10 ML SYR IV PRN (12:59)
[2024-12-21] MEDS: HEPARIN LOCK FLUSH 100 UNITS/ML 3 ML SYRINGE IV PRN (12:59)
== END 2024-12-21 12:50 | disposition home or self-care (01) | DRG 193 ==
LOC: M ED 11:39 → M ED INP 17:08 → UNDODISIN 12-14 17:29 → M MSPAV 12-14 17:41
PROVIDERS: ADMIT General Practice; ATTEND Student in an Organized Health Care Education/Training Program
DX: J18.9 Pneumonia, unspecified organism (principal); J96.01 Acute respiratory failure with hypoxia; E43 Unspecified severe protein-calorie malnutrition; C34.12 Malignant neoplasm of upper lobe, left bronchus or lung; J44.9 Chronic obstructive pulmonary disease, unspecified; E78.5 Hyperlipidemia, unspecified; I95.9 Hypotension, unspecified; I10 Essential (primary) hypertension; Z92.21 Personal history of antineoplastic chemotherapy; Z92.3 Personal history of irradiation; Z79.899 Other long term (current) drug therapy; M81.0 Age-related osteoporosis without current pathological fracture; Z86.16 Personal history of COVID-19; Z87.891 Personal history of nicotine dependence; Z91.018 Allergy to other foods; Z91.040 Latex allergy status; Z88.0 Allergy status to penicillin; Z88.2 Allergy status to sulfonamides; Z88.6 Allergy status to analgesic agent; Z91.041 Radiographic dye allergy status; Z88.8 Allergy status to other drugs, medicaments and biological substances; Z91.0120 Allergy to eggs, unspecified; F32.A Depression, unspecified

== ENCOUNTER → 2024-12-12 | Outpatient (CLI) | payer MEDICARE, MEDICAID ==
[~2024-12-12] MED LIST changes: +SUCR1TAB56 PO
[2024-12-16 16:52] LABS: T P ELECTROPHORESIS SO 6.0 g/dL (6.1-8.1)
== END ==
LOC: M ONCR 10:33
PROVIDERS: ATTEND General Practice
DX: C34.12 Malignant neoplasm of upper lobe, left bronchus or lung (principal); J18.8 Other pneumonia, unspecified organism; Z71.2 Person consulting for explanation of examination or test findings

== ENCOUNTER → 2024-12-30 | Outpatient (REF) | payer MEDICARE, MEDICAID ==
[~2024-12-30] MED LIST changes: +PRED10TA2 PO; +SUCR1TAB56 PO
[2024-12-30 08:19] LABS: BASO # 0.1 10^3/uL (0.0-0.2); BASO % 0.6 % (0.0-1.0); EOS # 1.1 10^3/uL (0.0-0.5); EOS % 5.2 % (0.0-3.0); LYMPH # 0.6 10^3/uL (1.5-5.0); LYMPH % 3.0 % (24.0-44.0); MONO # 1.0 10^3/uL (0.0-0.8); MONO % 5.0 % (2.0-8.0); NEUTROPHILS # 16.8 10^3/uL (1.5-8.5); NEUTROPHILS % 83.0 % (36.0-66.0); PLATELET COUNT, AUTOMATED 362 10^3/uL (150-450)
[2024-12-30 08:47] LABS: ALT/SGPT 19 U/L (7.0-40); AST/SGOT 17 U/L (<34); CALCIUM LEVEL 9.2 MG/DL (8.3-10.6); CARBON DIOXIDE LEVEL 30 MMOL/L (20-31); CHLORIDE LEVEL 94 MMOL/L (98-107); CHOLESTEROL LEVEL 217 MG/DL (<200); CHOLESTEROL RISK RATIO 2.58 (<5); CREATININE FOR GFR 0.70 MG/DL (0.55-1.30); GLOMERULAR FILTRATION RATE > 90.0 (>39); LDL CHOLESTEROL 108.2 MG/DL (<100); MAGNESIUM LEVEL 1.8 MG/DL (1.8-2.4); NON-HDL-C 133.0 MG/DL; POTASSIUM SERUM 4.5 MMOL/L (3.5-5.1); SODIUM LEVEL 135 MMOL/L (136-145); TRIGLYCERIDES LEVEL 124 MG/DL (<150)
[2024-12-30 08:50] LABS: FREE T4 1.23 NG/DL (0.89-1.76)
== END ==
LOC: M LAB REF 07:48
PROVIDERS: ATTEND Nurse Practitioner Family
DX: I10 Essential (primary) hypertension (principal); E78.00 Pure hypercholesterolemia, unspecified; E55.9 Vitamin D deficiency, unspecified

== ENCOUNTER → 2025-01-04 | Outpatient (CLI) | payer MEDICARE, MEDICAID | LOC: M ONCR 13:37 | PROVIDERS: ATTEND General Practice | DX: C34.12 Malignant neoplasm of upper lobe, left bronchus or lung (principal); Z87.891 Personal history of nicotine dependence; Z79.899 Other long term (current) drug therapy; Z92.3 Personal history of irradiation; Z92.21 Personal history of antineoplastic chemotherapy; Z88.0 Allergy status to penicillin; Z88.1 Allergy status to other antibiotic agents; Z88.2 Allergy status to sulfonamides; Z88.6 Allergy status to analgesic agent; Z88.8 Allergy status to other drugs, medicaments and biological substances; Z91.040 Latex allergy status; Z91.041 Radiographic dye allergy status; Z91.0120 Allergy to eggs, unspecified; Z91.018 Allergy to other foods; Z91.048 Other nonmedicinal substance allergy status; Z79.51 Long term (current) use of inhaled steroids ==

== ENCOUNTER → 2025-01-18 | Outpatient (CLI) | payer MEDICARE, MEDICAID ==
[~2025-01-18] VITALS: Ht 149.9 cm; Wt 39.3 kg
[~2025-01-18] MED LIST changes: -DOCU-122 PO; +DOCU-210 PO
[2025-01-18 14:37] VITALS: BP 134/77; O2SAT 96
== END ==
LOC: M PAL 13:26
PROVIDERS: ATTEND Physician Assistant
DX: Z51.5 Encounter for palliative care (principal); C34.90 Malignant neoplasm of unspecified part of unspecified bronchus or lung; Z79.891 Long term (current) use of opiate analgesic; Z91.040 Latex allergy status; Z91.0120 Allergy to eggs, unspecified; Z88.1 Allergy status to other antibiotic agents; Z88.0 Allergy status to penicillin; Z88.2 Allergy status to sulfonamides; Z91.018 Allergy to other foods; Z79.899 Other long term (current) drug therapy